=== PATIENT | male | born 1960 | race Caucasian/White ===

== ENCOUNTER → 2017-03-30 06:58 | Outpatient (CLI) | payer OTHER, SELFPAY ==
--- NOTE | 2017-03-30 13:39 | PFT_ITS ---
PULMONARY FUNCTION RESULTS SPIROMETRY: Mild Obstructive Ventilatory Component. No siginificant measurable clinical response to Beta Agonist. LUNG VOLUMES: Normal lung volumes. DIFFUSION: Normal gas transfer.
== END ==
PROVIDERS: Family Provider Internal Medicine; PCP Internal Medicine; Visit Provider Internal Medicine
DX: J44.9 Chronic obstructive pulmonary disease, unspecified (principal)
CPT/HCPCS: 94060; 94726; 94729

== ENCOUNTER → 2017-05-17 09:30 | Outpatient (CLI) | payer OTHER, SELFPAY ==
--- NOTE | 2017-05-17 09:33 | US_ITS ---
STUDY: ABDOMINAL ULTRASOUND - RIGHT UPPER QUADRANT REASON FOR VISIT: Male, 57 years old. Liver cirrhosis TECHNIQUE: Ultrasound evaluation of the right upper quadrant was performed with real-time and static tee-scale imaging. TECHNICAL QUALITY: Adequate. COMPARISON: None. FINDINGS: Liver: The liver measures 17.7 cm. There is a heterogeneous echogenicity of the liver. The bile ducts are within normal limits. There is hepatic color flow. The direction of portal flow is hepatopetal. There is no demonstrated mass lesion. Gallbladder: Normal distended gallbladder. The gallbladder wall measures 3 mm. There is a negative sonographic Scott's sign. There is no pericholecystic fluid. There are no gallstones. Common Bile Duct (C.B.D.): The common bile duct measures 4 mm. Pancreas: Normal size of the head, body of the pancreas. There is normal echogenicity of the pancreas. There is no demonstrated pancreatic mass or cyst. Right Kidney: Normal size of the right kidney. The right kidney measures 14.3 x 4.6 x 5.0 cm. Normal renal cortex. The right cortex measures 1.4 cm. There is no demonstrated renal mass or cyst. There is no right hydronephrosis. US/Abdomen Limited IMPRESSION: There is heterogeneous echogenicity of liver parenchyma may be due to liver cirrhosis. There is no abnormal mass. Electronically Signed: Asim Rollins MD at 14:01 EDT Tel , Service support ,
== END ==
PROVIDERS: Family Provider Internal Medicine; PCP Internal Medicine
DX: K74.69 Other cirrhosis of liver (principal)
CPT/HCPCS: 76705

== ENCOUNTER → 2017-12-13 10:43 | Outpatient (CLI) | payer OTHER, SELFPAY ==
--- NOTE | 2017-12-13 10:53 | US_ITS ---
STUDY: ABDOMINAL ULTRASOUND - RIGHT UPPER QUADRANT REASON FOR VISIT: Male, 57 years old. Elevated LFTs TECHNIQUE: Ultrasound evaluation of the right upper quadrant was performed with real-time and static tee-scale imaging. TECHNICAL QUALITY: Adequate. COMPARISON: None. FINDINGS: Liver: The liver measures 17.5 cm. There is increased echogenicity consistent with fatty infiltration. The bile ducts are within normal limits. There is hepatic color flow. The direction of portal flow is hepatopetal. There is no demonstrated mass lesion. Gallbladder: Normal distended gallbladder. The gallbladder wall measures 3 mm. There is a negative sonographic Scott's sign. There is no pericholecystic fluid. There are no gallstones. Common Bile Duct (C.B.D.): The common bile duct measures : mm. Pancreas: Normal size of the head, body and tail of the pancreas. There is normal echogenicity of the pancreas. There is no demonstrated pancreatic mass or cyst. Right Kidney: Normal size of the right kidney. The right kidney measures 13.6 x 4.9 x 4.6 cm. Normal renal cortex. The right cortex measures 1.3 cm. There is no demonstrated renal mass or cyst. There is no right hydronephrosis. US/Abdomen Limited IMPRESSION: Fatty liver, no discrete lesion Electronically Signed: Noe Gomez MD at 19:24 EDT , Service support ,
--- NOTE | 2017-12-13 12:45 | RAD_ITS ---
STUDY: SWALLOWING STUDY REASON FOR EXAM: Male, 57 years old. Cough. TECHNIQUE: The examination was performed with Speech Pathology in attendance. Under fluoroscopic observation, the patient ingested thin barium, thick barium, barium pudding, and barium coated cracker. FLUOROSCOPY TIME: 1:01 minutes/seconds. 880 fluoroscopic images were obtained. RADIOLOGIST INVOLVEMENT: Radiologist was present and providing direct supervision. COMPARISON: None. FINDINGS: The following was observed during swallowing of the various mixtures of barium: Thin Barium: There was no evidence of aspiration or laryngeal penetration. Barium Pudding: There was no evidence of aspiration or laryngeal penetration. Barium Coated Cracker: There was no evidence of aspiration or laryngeal penetration. RAD/Swallowing Function w/Video IMPRESSION: Normal tailored barium swallow study. No evidence of increased risk for aspiration. The swallow study findings were discussed with the patient by the speech pathologist at the conclusion of the examination. Please see speech pathology report for more information and recommendations. Electronically Signed: Johnathon Fulton MD at 14:01 EDT Tel [phone], Service support ,
--- NOTE | 2017-12-13 13:00 | SP.MBSS_ITS ---
PRIMARY / SECONDARY DIAGNOSIS: dysphagia (R13.10) REFERRING PHYSICIAN: Dr. Marybel Garcias MD CURRENT DIET: regular textures, thin liquids DENTITION: WFL MENTAL STATUS: WNL RESPIRATORY STATUS: O2 via room air PREVIOUS MODIFIED BARIUM SWALLOW STUDY: none REASON FOR REFERRAL: Patient is a 57 year old male referred for a modified barium swallow (MBS) study to objectively assess the Patients oropharyngeal swallow function under fluoroscopy secondary to reported difficulties with PO intake that the Patient attributes to rapid ingestion with bolus bolting (rapid ingestion without sufficient mastication) / aerophagia. The Patient reports symptoms occurring with ?fluffier? textures (i.e., potato chips) and likely associated with rapid ingestion and, at times in suboptimal positioning (i.e., lying in recliner). ADDITIONAL OBJECTIVE ASSESSMENT RESULTS: 04/01/2017 pulmonary functions test (PFT) revealed mild obstructive ventilatory component; no significant measurable clinical response to beta agonist. MEDICAL HISTORY: Chronic obstructive pulmonary disease, gastroesophageal reflux disease, obstructive sleep apnea, carotid stenosis, hypertension, hyperlipidemia, thrombocytopenia STUDY FINDINGS: Patient participated in a Modified Barium Swallow (MBS) study on 12/13/2017. Dr. Fulton was the radiologist present for this evaluation. This study was recorded in the lateral view and images were sent to PACs for storage. The following consistencies were presented to this patient for analysis of oropharyngeal swallow function: thin liquids, pudding, and a regular textured, Karine Doone cookie. Results of the MBS are as follows: PENETRATION / ASPIRATION SCALE (MILLER): 1 = does not enter airway 2 = enters airway/above vocal folds/ejected 3 = enters airway/above vocal folds/not ejected 4 = enters airway/contacts vocal folds/ejected 5 = enters airway/contacts vocal folds/not ejected 6 = enters airway/below vocal folds/ejected 7 = enters airway/below vocal folds/not ejected despite effort 8 = enters airway/below vocal folds/no effort PENETRATION / ASPIRATION SCALE (SCORE): Thin liquids via cup (sequential swallows): 1 Pudding via spoon: 1 Regular textured cookie: 1 Thin liquids via straw (single sip): 1 Thin liquids via straw (single sip): 1 Thin liquids via straw (single sip): 1 Thin liquids via straw (single sip): 1 IMPRESSION: DIAGNOSIS: swallow function within normal limits ORAL PHASE CHARACTERIZED BY: LABIAL SEAL: no labial escape TONGUE CONTROL DURING BOLUS MANIPULATION: cohesive bolus between tongue to palatal seal BOLUS PREPARATION / MASTICATION: timely and efficient chewing and mashing BOLUS TRANSPORT / LINGUAL MOTION: brisk tongue motion ORAL RESIDUE: intermittent trace residue lining oral structures PHARYNGEAL PHASE CHARACTERIZED BY: INITIATION OF PHARYNGEAL SWALLOW: bolus head in valleculae at first hyoid excursion SOFT PALATE ELEVATION: no bolus between soft palate and pharyngeal wall LARYNGEAL ELEVATION: complete superior movement of thyroid cartilage with complete approximation of arytenoids cartilage to epiglottic petiole ANTERIOR HYOID EXCURSION: complete anterior movement EPIGLOTTIC MOVEMENT: complete epiglottic inversion LARYNGEAL VESTIBULE CLOSURE AT HEIGHT OF SWALLOW: complete laryngeal vestibule closure with no air/contrast in laryngeal vestibule PHARYNGEAL STRIPPING WAVE: pharyngeal stripping wave present / complete PHARYNGOESOPHAGEAL SEGMENT OPENING: complete distension and complete duration with no obstruction of flow TONGUE BASE RETRACTION: no contrast between tongue base and posterior pharyngeal wall PHARYNGEAL RESIDUE: intermittent trace residue within or on pharyngeal structures ESOPHAGEAL PHASE CHARACTERIZED BY: ESOPHAGEAL BOLUS CLEARANCE IN THE UPRIGHT POSITION: could not view DIET TEXTURE RECOMMENDATIONS: Will recommend a regular textured, thin liquid diet. COMPENSATORY STRATEGIES RECOMMENDED: Reduced bolus volume, reduced rate of intake, seated upright at 90 degrees during PO intake, remain upright for 30-60 minutes post meal (GERD precaution) INTERPRETATION OF RESULTS: The Patient presents with mastication and deglutition abilities found to be grossly within normal limits. No aspiration appreciated throughout consistencies trialed. RECOMMENDATIONS: Would associate the Patients symptoms with intake behaviors described above, with no atypical findings suggestive of a defined dysphagia. Patient able to comprehend and express recommended intake precautions detailed above with sufficient detail to suggest high likelihood of compliance. Provided brief overview of signs and symptoms of aspiration, with recommendations for the Patient to further discuss symptoms with PCP. No further skilled speech- language services warranted at this time targeting dysphagia. ADDITIONAL COMMENTS/RECOMMENDATIONS: Results and recommendations were discussed with the Patient immediately following MBS completion, with the Patient verbalizing understanding and agreement with all recommendations and education provided. IMAGE COUNT: 880 G-CODES: SWALLOWING G8996 Current Status: SWALLOWING G8997 Goal Status: SWALLOWING G8998 Discharge Status: JULIO Azevedo M.A., CCC-UNISAW OPERATOR [facility] Speech-Language Pathology Department [email or web address]
--- NOTE | 2017-12-13 14:38 | CDU_ITS ---
[id number] ^CDU^Carotid Duplex Ultrasound [id number] TAG_START [facility] Carotid Duplex Ultrasound [address] [place], [place] [address] Ordering Physician: Marybel Garcias TAG_ENDED TAG_START Name: GILSON BHATIA Study Date: 12/13/2017 02:39 PM Patient Location: [place] : 1960 Gender: Male Age: 57 yrs Ethnicity: C TAG_ENDED Reason For Study: Bilateral carotid stenosis Rt. Velocities/BP Lt. Velocities/BP Prox CCA 126/17.3 cm/sec. Prox CCA 157/18.7 cm/sec. Mid CCA 127/21.2 cm/sec. Mid CCA 129/22.6 cm/sec. Dist CCA 110/23.6 cm/sec. Dist CCA 121/26.5 cm/sec. Prox ICA 75.6/18.8 cm/sec. Prox ICA 96.6/20.4 cm/sec. Mid ICA 107/29.1 cm/sec. Mid ICA 82.3/16.6 cm/sec. Dist ICA 122/34.6 cm/sec. Dist ICA 79.7/22.3 cm/sec. Rt. ICA/CCA = 0.97. Lt. ICA/CCA = 0.75. Prox ECA 145/24.4 cm/sec. Prox ECA 124/12.6 cm/sec. Rt. Vert. 46/12.6 cm/sec. Lt. Vert. 75.6/19.3 cm/sec. Right Extracranial There is intimal thickening but no significant atherosclerotic plaque noted in the right common carotid artery. There is heterogeneous, smooth atherosclerotic plaque noted in the right internal carotid artery. There is no significant atherosclerotic plaque noted in the right external carotid artery. Antegrade flow is noted in the right vertebral artery. Left Extracranial There is intimal thickening but no significant atherosclerotic plaque noted in the left common carotid artery. There is heterogeneous, irregular atherosclerotic plaque noted in the left internal carotid artery. There is no significant atherosclerotic plaque noted in the left external carotid artery. Antegrade flow is noted in the left vertebral artery. Procedure Carotid Duplex [id number]. Exam performed in department. Interpretation Summary Mild (<50%) stenosis right extracranial internal carotid. Mild (<50%) stenosis left extracranial internal carotid. Flow within the vertebral arteries is antegrade bilaterally. TAG_START TAG_ENDED Ordering Physician: Marybel Garcias Referring Physician: Marybel Garcias Performed By: Alvina Hagan RVT, RDCS and Student
== END ==
PROVIDERS: Family Provider Internal Medicine; PCP Internal Medicine; Referring Provider Internal Medicine; Visit Provider Internal Medicine
DX: I65.23 Occlusion and stenosis of bilateral carotid arteries (principal); R05 Cough; K74.60 Unspecified cirrhosis of liver; K76.9 Liver disease, unspecified
CPT/HCPCS: 74230; 76705; 92611; 93880

== ENCOUNTER → 2018-03-22 07:56 | Outpatient (CLI) | payer OTHER, SELFPAY ==
--- NOTE | 2018-03-22 08:10 | VDLE_ITS ---
Reason For Study: Bilateral leg pain RIGHT LEFT GSV is normal. GSV is normal. CFV is compressible, spontaneous, phasic, CFV is compressible, spontaneous, phasic, competent and demonstrates normal competent, and demonstrates normal augmentation. augmentation. FV is compressible, spontaneous, phasic, FV is compressible, spontaneous, phasic, competent and demonstrates normal competent and demonstrates normal augmentation. augmentation. POP V is compressible, spontaneous, phasic, POP V is compressible, spontaneous, phasic, competent and demonstrates normal competent and demonstrates normal augmentation. augmentation. T/P Trunk is compressible. T/P Trunk is compressible. PTV is compressible. PTV is compressible. RT PerV is compressible. LT PerV is compressible. Procedure Exam performed in department. A preliminary report was called and/or faxed to [facility]. Interpretation Summary Deep veins of the lower extremities are bilaterally patent and compressible segmentally. There is no evidence of deep vein thrombosis on either side. Valvular competence appears intact within the proximal deep venous systems bilaterally. The greater saphenous veins appear bilaterally patent and compressible segmentally. Ordering Physician: Marybel Garcias Referring Physician: Marybel Garcias Performed By: Giles Schaefer RVT and Student
[2018-03-22 08:26] LABS: Absolute Lymphocyte Count 0.56 X10^3/ul (0.83-4.51); Absolute Neutrophil Count 2.4 X10^3/uL (2.0-7.7); Basophil# 0.01 X10^3/uL; Basophil% 0.3 % (0-1); Eosinophil# 0.19 X10^3/uL; Eosinophils% 5.1 % (0-5); Hematocrit 40.5 % (40-54); Hemoglobin 13.1 g/dl (13.0-16.5); Lymphocyte # 0.56 X10^3/ul (4.0); Mean Corp Hgb Conc 32.3 g/gl (32-36); Mean Corpuscular Hgb 29.4 pg (27.0-32.0); Mean Platelet Vol. 9.3 fl (6.2-12.0); Neutrophil # 2.37 X10^3/uL (2.7-7.7); Neutrophil % 63.3 % (47-70); Platelet Count 95 K/mm3 (150-450); RBC Distribution Width CV 15.4 % (11.6-14.6); RBC Distribution Width SD 50.3 fl (35.1-43.9); Red Blood Count 4.45 M/mm3 (4.6-6.2); White Blood Count 3.7 K/mm3 (4.4-11.0)
[2018-03-22 08:32] LABS: Differential Indicated SCAN CRITERIA MET; POSITIVE COUNT NO; POSITIVE DIFFERENTIAL YES; POSITIVE MORPHOLOGY NO
[2018-03-22 08:45] LABS: Differential Comment SCANNED
== END ==
PROVIDERS: Family Provider Internal Medicine; PCP Internal Medicine; Referring Provider Internal Medicine; Visit Provider Internal Medicine
DX: M79.604 Pain in right leg (principal); M79.605 Pain in left leg; R50.9 Fever, unspecified
CPT/HCPCS: 36415; 85025; 93970

== ENCOUNTER → 2018-04-13 12:28 | Outpatient (CLI) | payer SELFPAY ==
--- NOTE | 2018-04-13 12:41 | CT_ITS ---
STUDY: CT CHEST WITHOUT CONTRAST REASON FOR EXAM: Male, 58 years old. Hyperlipidemia. Former smoker. Diabetes. Calcium scoring examination. Radiology over read. RADIATION DOSAGE (If Supplied By Facility): CTDIvol = ( 17.37 ) mGy, DLP = ( 347.40 ) mGycm TECHNIQUE: Transaxial imaging was performed without the administration of intravenous contrast material. Individualized dose optimization techniques were used for this CT. COMPARISON: Comparison is made with prior examination dated January 08, 2012. FINDINGS: The lungs are normal. There is no demonstrated pleural abnormality. There are calcifications of the coronary arteries. There are multiple small lymph nodes within the mediastinum, which are normal in size and morphology most compatible with reactive lymph hyperplasia. Normal hilar regions. Normal unenhanced pulmonary arteries. There is atherosclerotic calcification of the aortic arch . There are multi-level degenerative changes of the thoracic spine. Healed left rib fractures. There is no demonstrated abnormality of the visualized upper abdomen. CT/Limited Chest CT w/CCTA IMPRESSION: Coronary artery calcification. No acute abnormality is seen. Electronically Signed: Johnathon Fulton, at 13:13 EST , Service support ,
[2018-04-13 12:50] VITALS: PULSE 67; RESP 16; O2SAT 100; BMI 40.6
--- NOTE | 2018-04-13 18:48 | CA.SCORE ---
Calcium Scoring Date of Study:: 04/13/18 Coronary Calcium Scoring: Coronary calcium score: 1502 Conclusion: Coronary calcium score: 1502 Results: The patient underwent high-resolution CT imaging of the chest on 04/13/2018. Attention was paid to the coronary arteries for examination and analysis of the presence and extent of coronary artery calcification. Coronary calcium quantification software was utilized. The patient was reported as tolerating the procedure well with no obvious complications. The coronary calcium score was reported at 1502. The left main coronary artery reported urinary calcium score of 0; the left anterior descending coronary artery reported a calcium score of 350; the left circumflex coronary artery reported a calcium score of 251; the right coronary artery reported a calcium score of 901. A coronary calcium score, based upon pre-published reference tables, greater than 400 is indicative of extensive plaque burden. It is indicative of the high likelihood of at least one significant coronary artery stenosis being greater than 50% in diameter. Impression: Coronary calcium score: 1502 This note was generated using a voice recognition system and there may be incorrect words, spelling or punctuation that were not noted when reviewing the office note prior to saving.
== END ==
PROVIDERS: Family Provider Internal Medicine; PCP Internal Medicine; Referring Provider Internal Medicine; Visit Provider Internal Medicine
DX: E78.5 Hyperlipidemia, unspecified (principal)
CPT/HCPCS: 75571; 76380

== ENCOUNTER → 2018-06-10 07:36 | Outpatient (CLI) | payer OTHER, SELFPAY ==
[2018-06-01 12:24] VITALS: BMI 40.6
--- NOTE | 2018-06-10 07:39 | RAD_ITS ---
STUDY: X-RAY CHEST REASON FOR EXAM: Male, 58 years old. Substernal chest pain TECHNIQUE: PA and lateral views of the chest. COMPARISON: 02/28/2011 FINDINGS: The lungs are clear and expanded. There is no demonstrated pleural abnormality. Normal size heart. Normal mediastinum and denisse. Normal visualized pulmonary arteries. Normal visualized aortic arch and descending thoracic aorta. Normal visualized thoracic spine. Old healed left rib fractures There is no demonstrated abnormality of the visualized soft tissue structures of the upper abdomen. RAD/Chest PA and Lateral IMPRESSION: No acute pulmonary process Electronically Signed: Noe Gomez MD at 9:00 EDT , Service support ,
--- NOTE | 2018-06-10 07:55 | US_ITS ---
STUDY: ABDOMINAL ULTRASOUND - RIGHT UPPER QUADRANT REASON FOR VISIT: Male, 58 years old. Elevated LFTs TECHNIQUE: Ultrasound evaluation of the right upper quadrant was performed with real-time and static tee-scale imaging. TECHNICAL QUALITY: Limited. Examination limited by bowel gas. COMPARISON: 12/13/2017 FINDINGS: Liver: The liver measures 18.4 cm. There is increased echogenicity consistent with fatty infiltration. The bile ducts are within normal limits. There is hepatic color flow. The direction of portal flow is hepatopetal. There is no demonstrated mass lesion. Gallbladder: Normal distended gallbladder. The gallbladder wall measures 2.5 mm. There is a negative sonographic Scott's sign. There is no pericholecystic fluid. There are no gallstones. Common Bile Duct (C.B.D.): The common bile duct measures 3.5 mm. Pancreas: Visualized pancreas is sonographically normal Right Kidney: Normal size of the right kidney. The right kidney measures 13.1 x 6.0 x 6.1 cm. Normal renal cortex. The right cortex measures 2.2 cm. There is no demonstrated renal mass or cyst. There is no right hydronephrosis. US/Abdomen Limited IMPRESSION: Hepatomegaly with diffuse fatty infiltration, no discrete lesion Electronically Signed: Noe Gomez MD at 10:37 EDT , Service support ,
[2018-06-10 09:26] LABS: Absolute Lymphocyte Count 0.69 X10^3/ul (0.83-4.51); Absolute Neutrophil Count 2.1 X10^3/uL (2.0-7.7); Basophil# 0.01 X10^3/uL; Basophil% 0.3 % (0-1); Eosinophil# 0.11 X10^3/uL; Eosinophils% 3.2 % (0-5); Hematocrit 43.3 % (40-54); Hemoglobin 14.4 g/dl (13.0-16.5); Lymphocyte # 0.69 X10^3/ul (4.0); Lymphocyte % 20.2 % (19-41); Mean Corp Hgb Conc 33.3 g/gl (32-36); Mean Corpuscular Hgb 29.1 pg (27.0-32.0); Mean Corpuscular Volume 87.5 fL (80-94); Mean Platelet Vol. 9.5 fl (6.2-12.0); Monocyte# 0.52 X10^3/uL; Monocyte% 15.2 % (0-10); Neutrophil # 2.07 X10^3/uL (2.7-7.7); Neutrophil % 60.8 % (47-70); Platelet Count 111 K/mm3 (150-450); RBC Distribution Width CV 14.9 % (11.6-14.6); RBC Distribution Width SD 47.7 fl (35.1-43.9); Red Blood Count 4.95 M/mm3 (4.6-6.2); White Blood Count 3.4 K/mm3 (4.4-11.0)
[2018-06-10 09:29] LABS: POSITIVE COUNT NO; POSITIVE DIFFERENTIAL NO; POSITIVE MORPHOLOGY NO
[2018-06-10 09:59] LABS: Anion Gap 8 (5-15); BUN 15 mg/dL (7-18); BUN/Creat Ratio 14.6 RATIO (10-20); Calcium,Total 8.7 mg/dL (8.5-10.1); Chloride 104 mmol/L (98-107); Creatinine, Serum 1.03 mg/dL (0.70-1.30); EST Glomerular Filtration Rate 78 mL/min (>60); Est Glom Filt Rate - Afr Amer 95 mL/min (>60); Glucose 110 mg/dL (74-106); Potassium 3.9 mmol/L (3.5-5.1); Sodium Level 139 mmol/L (136-145)
== END ==
PROVIDERS: Internal Medicine Cardiovascular Disease; Family Provider Internal Medicine; PCP Internal Medicine; Referring Provider Internal Medicine; Visit Provider Internal Medicine
DX: K74.60 Unspecified cirrhosis of liver (principal); I10 Essential (primary) hypertension; E78.5 Hyperlipidemia, unspecified; R93.1 Abnormal findings on diagnostic imaging of heart and coronary circulation
CPT/HCPCS: 36415; 71046; 76705; 80048; 85025

== ENCOUNTER 2018-06-30 06:48 | Day surgery (SDC) | payer OTHER, SELFPAY ==
[2018-06-01 12:24] VITALS: BMI 40.6
--- NOTE | 2018-06-30 08:34 | CL.D_ITS ---
Patient Name: GILSON BHATIA Study Date: 06/30/2018 Performing: Keven Jenkins MD Ht: 70.07 inches 178 cm : 1960 Wt: 275 lbs 124.74 kg Age: 58 Gender: male BSA: 2.39 PROCEDURE(S) PERFORMED [id number]/LV CLINICAL PROFILE AND INDICATIONS Indications: Suspected CAD Heart Failure: None Stress/Imaging Coronary Calcium Score: Yes Calcium Score: 1500Calcium Score: 1500 CAD Presentations: Symptom unlikely to be ischemic. CONCLUSIONS Non obstructive coronary arteries Normal LV size, wall motion,and systolic function RECOMMENDATIONS Medical therapy DESCRIPTION OF PROCEDURE The patient arrived to the procedure lab. The risks and benefits of the procedure as well as a full d escription of our services here and current unavailability of surgical backup were fully explained to the patient and/or their significant other prior to the catheterization. The Timeout was completed, verifying the correct patient and procedure. The patient's procedural site was prepped and draped in the usual fashion. Local anesthetic was given subcutaneously to right radial region with Lidocaine 2% . Using a modified Seldinger technique, arterial access was obtained via the right radial artery, a 6 Fr sheath was inserted. Right Coronary Artery selective angiography was then performed in multiple v iews using a 5 Fr. 4.0 Flom catheter. Left Coronary Artery selective angiography was performed in mu ltiple views using a 5 Fr. 4.0 Flom catheter. Left Ventriculography was performed in YOUNG projection using a 5 Fr. Pigtail catheter. LV to AO pullback pressures were then recorded.The arterial sheath was pulled and a TR Band was applied for hemostasis. 14 Air CORONARY ANGIOGRAPHY DOMINANCE: Right Dominant LEFT HEART ASSESSMENT Left Ventricular Ejection Fraction: by LV Gram 65 % Normal LV wall motion Normal Left Ventricular systolic function LEFT MAIN: Mild calcification, No significant disease noted LEFT ANTERIOR DESCENDING ARTERY: Mild luminal irregularities CIRCUMFLEX ARTERY: Mild luminal irregularities RAMUS: Mild luminal irregularities RIGHT CORONARY ARTERY: Mild luminal irregularities Mild calcification COMPLICATIONS No Complications PROCEDURE MEDICATIONS Fentanyl 50 mcg IV Versed 1 mg IV Oxygen: 2 L/min via nasal cannula Heparin diluted in 23cc Heparinized saline. Patient given 10cc IA of this solution. 06/30/2018 08:12: 18 Verapamil 2.5mg, Ntg 100mcgs, 2000 units of Heparin diluted in 23cc Heparinized saline. Patient give n 10cc IA of this solution. 06/30/2018 08:12:18 IV Fluids: .9 NaCl increased to open ml/hr 06/30/2018 08:16:12 SUMMARY OF HEMODYNAMIC DATA Time AIR REST ECG 07:58:18 AO 92/45 (62) SA 08:14:54 LV 108/24, 33 08:22:17 LV 111/21, 28 08:22:25 LV 123/27, 32 08:23:46 LVp 117/21, 36 08:23:49 AOp 119/76 (95) 08:23:54 Signed By Keven Jenkins MD On 06/30/2018 08:34:02 Keven Jenkins MD
== END 2018-06-30 11:15 | disposition home or self-care (01) ==
LOC: CLSP 06:49
PROVIDERS: Family Provider Internal Medicine; PCP Internal Medicine; Referring Provider Internal Medicine Cardiovascular Disease; Visit Provider Internal Medicine Cardiovascular Disease
DX: R93.1 Abnormal findings on diagnostic imaging of heart and coronary circulation (principal); J44.9 Chronic obstructive pulmonary disease, unspecified; E11.9 Type 2 diabetes mellitus without complications; I10 Essential (primary) hypertension; E78.5 Hyperlipidemia, unspecified; K27.7 Chronic peptic ulcer, site unspecified, without hemorrhage or perforation; M19.90 Unspecified osteoarthritis, unspecified site; K21.9 Gastro-esophageal reflux disease without esophagitis; G47.33 Obstructive sleep apnea (adult) (pediatric); E66.9 Obesity, unspecified; Z79.82 Long term (current) use of aspirin; Z79.02 Long term (current) use of antithrombotics/antiplatelets; Z79.899 Other long term (current) drug therapy; Z87.891 Personal history of nicotine dependence
CPT/HCPCS: 93458; 99152; 99153; J7040; Q9967; C1769; C1894

== ENCOUNTER → 2018-07-13 09:26 | Outpatient (CLI) | payer OTHER, SELFPAY ==
[2018-06-01 12:24] VITALS: BMI 40.6
--- NOTE | 2018-07-13 09:29 | RAD_ITS ---
STUDY: X-RAY - RIGHT KNEE REASON FOR EXAM: Male, 58 years old. Pain. No known injury. TECHNIQUE: 4 view(s) of the knee. COMPARISON: None. FINDINGS: Normal visualized distal femur. Normal visualized proximal tibia and fibula. Normal proximal tibiofibular articulation. There is mild degenerative arthrosis of the medial femorotibial compartment. Normal lateral femorotibial compartment. Normal patellofemoral articulation. The soft tissue structures are unremarkable. RAD/Knee 4 or More Views IMPRESSION: Degenerative arthrosis. Electronically Signed: Johnathon Fulton, at 10:03 EDT , Service support ,
== END ==
PROVIDERS: Family Provider Internal Medicine; PCP Internal Medicine; Referring Provider Internal Medicine; Visit Provider Internal Medicine
DX: M25.561 Pain in right knee (principal)
CPT/HCPCS: 73564

== ENCOUNTER 2018-09-12 07:00 | Outpatient (RCR) | payer OTHER, SELFPAY ==
[2018-06-01 12:24] VITALS: BMI 40.6
--- NOTE | 2018-08-19 09:51 | HP.PTEVAL_ITS ---
Patient's Visit Information GILSON BHATIA is a 58 year old M referred to Physical Therapy by Margie Wynn DO with a diagnosis of B nee OA, pain. Date of Evaluation: 08/19/18 Physical Therapist: Phillip Colbert, DPT, OCS, CSCS - Visit Plan Frequency: 2x /Week Duration: 4-6 Weeks Plan: Every other week(pt to busy to come in more often) to progress HEP. Started with stretches today and will progress to NWB then WB LE strength to tolerance. Consider tempering kiln tender bracing if pain returns. - Subjective Findings: Needs L TKA and has pain mostly in L and favors R and both hurt. Tore meniscus on L 5 yrs ago turning in shop. Had stem cells B 3 weeks ago.Seen [facility] 5 yrs ago for surgery. Takes antiinflammatory long time but wasn't helping last fall. Had therapy last fall adn it did not help. Rose says he needs knee replacement. Pain on a daily basis is none right now. But feels like he has to be marina and overly careful. [place] adn climbing in and out of tractor cab are worse. Does not avoid activities but is overly careful. Sometimes avoids getting down on ground under equipment. 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 - Pain L knee medially Pain Intensity (Out of 10): 0 Pain Intensity Range: 0, 3 - Objective Walks with obvious varus L >R knee. But safe and I without antalgia today. Tranfers I. tightness obvoius in B HS, quads moderately and piriformis moderately. Knee AROM L 0-121 and R 0-126. Hip AROM WFL and symmetrical, ankle symmetrical. strength hips 4-, knees 4+ and ankles 5/5, no increased pain today. reflexes 2/3 in patella and achilles. - varus and valgus testing today, - ant drawer,- bounce home, - patellar grind. All B. Steps are reciprocal with one rail with jsut some stiffness in R knee. - Goals Goal 1:: I approp HEP for strefngth and stretch B hips and knees to minimzie future problems. Goal Time Frame: 4-6 Weeks Goal 2:: Pt maintain improvemnt in knee pain at 0-2/10 at worst and manageable. Goal Time Frame: 4-6 Weeks - Rehabilitation Potential Physical Therapy Diagnosis: Degeneration B Knees. Rehabilitation Potential: Fair - Anticipated Interventions Patient/Client Instruction: Educate patient on: Condition, Plan of Care For the Purpose of:: To decrease pain, To increase ROM, To improve muscle performance and motor function, To increase tolerance to activity/condition/position Therapeutic Exercise to Include: Strength training, Flexibilty training, Passive ROM, Active ROM For the Purpose of:: To decrease pain, To improve nutrient delivery to tissue, To improve muscle performance and motor function, To improve ability of physical actions for home/community/work/leisure Thank you for the opportunity to evaluate your patient. For Medicare and Medicare HMO plans, please review the plan of care and approve it. It will need to be FAXED BACK to us at [phone] for Medicare purposes. For Medicare only, by signing this I certify the plan of care. Please let me know if there are questions or concerns regarding this plan of care. Physician Signature: Date:
--- NOTE | 2018-11-03 12:06 | HP.PT.NRP ---
HP - Discharge Summary (1) - Patient Information GILSON BHATIA was seen in my office for initial evaluation on 08/19/18. The following Plan of Care was established for this patient: Initial Frequency: 2x /Week Initial Duration: 4-6 Weeks - Anticipated Interventions Patient/Client Instruction: Educate patient on: Condition, Plan of Care For the Purpose of:: To decrease pain, To increase ROM, To improve muscle performance and motor function, To increase tolerance to activity/condition/position Therapeutic Exercise to Include: Strength training, Flexibilty training, Passive ROM, Active ROM For the Purpose of:: To decrease pain, To improve nutrient delivery to tissue, To improve muscle performance and motor function, To improve ability of physical actions for home/community/work/leisure This patient was last seen in our office 09/12/18. Pertinent comments regarding their Physical therapy will appear below: Pt seen 2 visits for HEP instruct to help managem his knee OA. He cancelled the last visit neglecting to reschedule. at this point, I will discontinue due to nonattendance. At this point I will be discontinuing this patient from physical therapy. I would be happy to see this patient again in the future if found appropriate by the physician. Thank you! Phillip Colbert, DPT, OCS, CSCS
== END 2018-09-12 19:00 | disposition home or self-care (01) ==
LOC: PT 07:00
PROVIDERS: Family Provider Internal Medicine; PCP Internal Medicine; Referring Provider Internal Medicine; Visit Provider Internal Medicine
DX: M25.562 Pain in left knee (principal); M25.561 Pain in right knee; M17.0 Bilateral primary osteoarthritis of knee
CPT/HCPCS: 97110; 97162

== ENCOUNTER → 2018-09-14 14:39 | Outpatient (CLI) | payer OTHER, SELFPAY ==
[2018-06-01 12:24] VITALS: BMI 40.6
[2018-09-14 15:09] LABS: Bacteria 0 SEEN /hpf (None Seen); Mucous, Urine 0 SEEN /hpf (<or=2+); Red Blood Cells-Urine 0 SEEN /hpf (0-5); Squamous Epithelial Cells - UA 0 SEEN /hpf (0-5); White Blood Cells 0 SEEN /hpf (0-5)
[2018-09-14 15:20] LABS: Absolute Neutrophil Count 2.4 X10^3/uL (2.0-7.7); Basophil# 0.02 X10^3/uL; Basophil% 0.6 % (0-1); Eosinophil# 0.11 X10^3/uL; Hematocrit 41.6 % (40-54); Hemoglobin 14.2 g/dL (13.0-16.5); Lymphocyte % 16.6 % (19-41); Mean Corp Hgb Conc 34.1 g/dL (32-36); Mean Corpuscular Volume 90.8 fL (80-94); Mean Platelet Vol. 9.7 fl (6.2-12.0); Monocyte# 0.51 X10^3/uL; Monocyte% 14.1 % (0-10); NRBC Flagged by Analyzer 0 % (0-5); Neutrophil # 2.37 X10^3/uL (2.7-7.7); Neutrophil % 65.4 % (47-70); POSITIVE DIFFERENTIAL YES; Platelet Count 95 K/mm3 (150-450); RBC Distribution Width CV 14.3 % (11.6-14.6); RBC Distribution Width SD 48.2 fl (35.1-43.9); Red Blood Count 4.58 M/mm3 (4.6-6.2); White Blood Count 3.6 K/mm3 (4.4-11.0)
[2018-09-14 15:43] LABS: CPK Total, Creatine Kinase 125 U/L (39-308); CRP 4.84 mg/L (0.0-3.0); D-Dimer Quantitative (DVT/PE) 0.44 FEU/ug/m (0.27-0.49); LDH 153 U/L (87-241); Thyroid Stim Hormone (TSH) 1.48 uIU/mL (0.358-3.74)
[2018-09-14 15:46] LABS: Differential Indicated SCAN CRITERIA MET
[2018-09-14 15:52] LABS: Color, Urine Yellow (Yellow); Glucose, Dipstick Normal (Normal); Ketone-Dipstick Negative (Negative); Leukocyte Esterase-Dipstick Negative /ul (Negative); Nitrite-Dipstick Negative (Negative); Occult Blood-Urine Negative /ul (Negative); Protein-Dipstick Negative (Negative); Urine Bilirubin Dipstick Negative (Negative); Urine Clarity Clear (Clear); Urine Urobilinogen Normal (Normal)
[2018-09-14 16:08] LABS: Differential Comment SCANNED; Erythrocyte Sedimentation Rate 17 mm/hr (0-20)
[2018-09-16 13:44] LABS: Pathologist Review Reviewed
== END ==
PROVIDERS: Family Provider Internal Medicine; PCP Internal Medicine; Referring Provider Internal Medicine; Visit Provider Internal Medicine
DX: R07.9 Chest pain, unspecified (principal); R25.2 Cramp and spasm; R61 Generalized hyperhidrosis
CPT/HCPCS: 81001; 82550; 83615; 84443; 84484; 85025; 85379; 85652; 86140; 87086; 87088

== ENCOUNTER → 2018-09-15 09:15 | Outpatient (CLI) | payer OTHER, SELFPAY ==
[2018-06-01 12:24] VITALS: BMI 40.6
--- NOTE | 2018-09-15 09:18 | CT_ITS ---
STUDY: CT CHEST WITH CONTRAST REASON FOR EXAM: Male, 58 years old. 2 day history of chest pain. RADIATION DOSAGE (If Supplied By Facility): CTDIvol = ( 16.69 ) mGy, DLP = ( 749.27 ) mGycm TECHNIQUE: Transaxial imaging was performed following intravenous administration of 100 IV Isovue 300. Multiplanar coronal and sagittal images were reformatted. Individualized dose optimization techniques were used for this CT. COMPARISON: Comparison is made with prior study dated April 13, 2018. FINDINGS: Small bilateral benign-appearing axillary nodes. The lungs are normal. There is no demonstrated pleural abnormality. There are calcifications of the coronary arteries. Normal mediastinum. Normal hilar regions. Normal enhanced pulmonary arteries. There is focal atherosclerotic calcification of the aortic arch. There are multi-level degenerative changes of the thoracic spine. Healed left rib fractures. Small hiatal hernia. CT/Chest WITH Contrast IMPRESSION: No acute abnormality is seen. Electronically Signed: Johnathon Fulton, at 9:54 EDT , Service support ,
== END ==
PROVIDERS: Family Provider Internal Medicine; PCP Internal Medicine; Referring Provider Internal Medicine; Visit Provider Internal Medicine
DX: R07.9 Chest pain, unspecified (principal)
CPT/HCPCS: 71260; Q9967

== ENCOUNTER → 2018-09-21 13:21 | Outpatient (CLI) | payer OTHER, SELFPAY ==
[2018-06-01 12:24] VITALS: BMI 40.6
--- NOTE | 2018-09-21 13:24 | RAD_ITS ---
STUDY: X-RAY - THORACIC SPINE REASON FOR EXAM: Male, 58 years old. Anterior chest pain TECHNIQUE: 3 view(s) of the thoracic spine were obtained. COMPARISON: None. FINDINGS: Normal kyphosis of the thoracic spine. There is no substantial scoliosis. There is multilevel endplate spondylosis of the thoracic vertebrae. There is no acute fracture. The soft tissue structures are unremarkable. RAD/Thoracic Spine 3 Views IMPRESSION: Thoracic spondylosis. No fracture seen. Electronically Signed: Jose C Casas MD at 17:08 EDT , Service support ,
== END ==
PROVIDERS: Family Provider Internal Medicine; PCP Internal Medicine; Referring Provider Internal Medicine; Visit Provider Internal Medicine
DX: R07.89 Other chest pain (principal)
CPT/HCPCS: 72072

== ENCOUNTER → 2018-11-12 08:29 | Outpatient (CLI) | payer OTHER, SELFPAY ==
[2018-06-01 12:24] VITALS: BMI 40.6
--- NOTE | 2018-11-12 08:38 | RAD_ITS ---
STUDY: X-RAY - RIGHT KNEE REASON FOR EXAM: Male, 58 years old. Chronic pain TECHNIQUE: 4 view(s) of the knee. COMPARISON: None. FINDINGS: There is no evidence of fracture or dislocation. There are mild tricompartmental degenerative changes. There are no radiodense foreign bodies. RAD/Knee 4 or More Views IMPRESSION: No fracture or dislocation in the right knee. Mild degenerative change. Electronically Signed: Binh Holt, at 9:05 EDT Tel , Service support ,
== END ==
PROVIDERS: Family Provider Internal Medicine; PCP Internal Medicine; Referring Provider Internal Medicine; Visit Provider Internal Medicine
DX: M25.561 Pain in right knee (principal)
CPT/HCPCS: 73564

== ENCOUNTER → 2018-12-27 07:57 | Outpatient (CLI) | payer OTHER, SELFPAY ==
[2018-06-01 12:24] VITALS: BMI 40.6
--- NOTE | 2018-12-27 07:59 | CDU_ITS ---
Reason For Study: Bilateral carotid artery stenosis Rt. Velocities/BP Lt. Velocities/BP Prox CCA 104.7/13.4 cm/sec. Prox CCA 128/18.2 cm/sec. Mid CCA 100.8/13.4 cm/sec. Mid CCA 119.2/16 cm/sec. Dist CCA 98.2/18.6 cm/sec. Dist CCA 108.2/20.4 cm/sec. Prox ICA 99.2/18.8 cm/sec. Prox ICA 95.4/13.3 cm/sec. Mid ICA 80.2/23.7 cm/sec. Mid ICA 86.3/18.8 cm/sec. Dist ICA 119.5/28.6 cm/sec. Dist ICA 99.2/25.6 cm/sec. Rt. ICA/CCA = 1.19. Lt. ICA/CCA = 0.83. Prox ECA 150.3/18.8 cm/sec. Prox ECA 149.9/16 cm/sec. Rt. Vert. 49.4/11.6 cm/sec. Lt. Vert. 77.7/15.1 cm/sec. Right Extracranial There is homogeneous, smooth atherosclerotic plaque noted in the right common carotid artery. There is homogeneous, smooth atherosclerotic plaque noted in the right internal carotid artery. There is no significant atherosclerotic plaque noted in the right external carotid artery. Antegrade flow is noted in the right vertebral artery. Left Extracranial There is homogeneous, smooth atherosclerotic plaque noted in the left common carotid artery. There is heterogeneous, irregular atherosclerotic plaque noted in the left internal carotid artery. There is no significant atherosclerotic plaque noted in the left external carotid artery. Antegrade flow is noted in the left vertebral artery. Procedure Carotid Duplex 10791. Exam performed in department. Interpretation Summary Mild (<50%) stenosis right extracranial internal carotid. Mild (<50%) stenosis left extracranial internal carotid. Flow within the vertebral arteries is antegrade bilaterally. Ordering Physician: Marybel Garcias Referring Physician: Marybel Garcias Performed By: Krupa Kurtz RVT
== END ==
PROVIDERS: Family Provider Internal Medicine; PCP Internal Medicine; Referring Provider Internal Medicine; Visit Provider Internal Medicine
DX: I65.23 Occlusion and stenosis of bilateral carotid arteries (principal)
CPT/HCPCS: 93880

== ENCOUNTER → 2019-01-04 10:09 | Outpatient (CLI) | payer OTHER, SELFPAY ==
[2018-06-01 12:24] VITALS: BMI 40.6
--- NOTE | 2019-01-04 10:12 | US_ITS ---
STUDY: ABDOMINAL ULTRASOUND - RIGHT UPPER QUADRANT REASON FOR VISIT: Male, 58 years old. Hemachromatosis TECHNIQUE: Ultrasound evaluation of the right upper quadrant was performed with real-time and static tee-scale imaging. TECHNICAL QUALITY: Adequate. COMPARISON: None. FINDINGS: Liver: The liver measures 18 cm. There is increased echogenicity of the liver. The bile ducts are within normal limits. There is hepatic color flow. The direction of portal flow is hepatopetal. There is no demonstrated mass lesion. Gallbladder: The gallbladder wall measures 3 mm. There is a negative sonographic Scott's sign. There is no pericholecystic fluid. There are no gallstones. The gallbladder contains sludge. Common Bile Duct (C.B.D.): The common bile duct measures 3 mm. Pancreas: Normal size of the head, body and tail of the pancreas. There is normal echogenicity of the pancreas. There is no demonstrated pancreatic mass or cyst. Right Kidney: Normal size of the right kidney. The right kidney measures 14 cm. Normal renal cortex. There is no demonstrated renal mass or cyst. There is no right hydronephrosis. US/Liver IMPRESSION: Hepatomegaly and fatty liver. No hepatic lesions identified. Gallbladder sludge. Electronically Signed: Raffi Mcdaniel, at 21:43 EST Tel , Service support ,
== END ==
PROVIDERS: Family Provider Internal Medicine; PCP Internal Medicine; Referring Provider Internal Medicine; Visit Provider Internal Medicine
DX: E83.119 Hemochromatosis, unspecified (principal)
CPT/HCPCS: 76705

== ENCOUNTER → 2019-03-07 16:29 | Outpatient (CLI) | payer OTHER, SELFPAY ==
[2018-06-01 12:24] VITALS: BMI 40.6
[2019-03-07 17:51] LABS: Absolute Lymphocyte Count 0.74 X10^3/uL (0.83-4.51); Absolute Neutrophil Count 3.2 X10^3/uL (2.0-7.7); Basophil# 0.01 X10^3/uL; Basophil% 0.2 % (0-1); Eosinophil# 0.21 X10^3/uL; Eosinophils% 4.4 % (0-5); Hematocrit 40.6 % (40-54); Hemoglobin 13.3 g/dL (13.0-16.5); Lymphocyte # 0.74 X10^3/ul (4.0); Lymphocyte % 15.5 % (19-41); Mean Corp Hgb Conc 32.8 g/dL (32-36); Mean Corpuscular Hgb 29.4 pg (27.0-32.0); Mean Corpuscular Volume 89.6 fL (80-94); Mean Platelet Vol. 9.2 fl (6.2-12.0); Monocyte# 0.58 X10^3/uL; Monocyte% 12.1 % (0-10); NRBC Flagged by Analyzer 0 % (0-5); Neutrophil # 3.23 X10^3/uL (2.7-7.7); Neutrophil % 67.6 % (47-70); Platelet Count 117 K/mm3 (150-450); RBC Distribution Width CV 14.4 % (11.6-14.6); RBC Distribution Width SD 46.9 fl (35.1-43.9); Red Blood Count 4.53 M/mm3 (4.6-6.2); White Blood Count 4.8 K/mm3 (4.4-11.0)
[2019-03-07 18:04] LABS: Anion Gap 5 (5-15); BUN 20 mg/dL (7-18); BUN/Creat Ratio 20.7 RATIO (10-20); Calcium,Total 8.9 mg/dL (8.5-10.1); Chloride 107 mmol/L (98-107); Creatinine, Serum 0.97 mg/dL (0.70-1.30); EST Glomerular Filtration Rate 84 mL/min (>60); Est Glom Filt Rate - Afr Amer 102 mL/min (>60); Glucose 106 mg/dL (74-106); Potassium 3.7 mmol/L (3.5-5.1); Sodium Level 140 mmol/L (136-145)
[2019-03-07 18:15] LABS: Hemoglobin A1c 6.5 % (4.2-6.3)
== END ==
PROVIDERS: PCP Internal Medicine; Referring Provider Physician Assistant; Visit Provider Physician Assistant
DX: Z01.810 Encounter for preprocedural cardiovascular examination (principal); Z01.818 Encounter for other preprocedural examination; E11.9 Type 2 diabetes mellitus without complications
CPT/HCPCS: 36415; 80048; 83036; 85025

== ENCOUNTER → 2019-07-13 | Outpatient (CLI) | payer OTHER, SELFPAY ==
[2019-05-30 09:19] VITALS: BMI 40.0
== END | disposition home or self-care (01) ==
LOC: LABSPEC 13:29
PROVIDERS: PCP Internal Medicine; Referring Provider Internal Medicine Gastroenterology; Visit Provider Internal Medicine Gastroenterology
DX: Z11.59 Encounter for screening for other viral diseases (principal); I85.00 Esophageal varices without bleeding
CPT/HCPCS: 87635; G2023; U0004

== ENCOUNTER → 2019-09-27 10:53 | Outpatient (CLI) | payer OTHER, SELFPAY ==
[2019-05-30 09:19] VITALS: BMI 40.0
--- NOTE | 2019-09-27 10:58 | US_ITS ---
STUDY: ABDOMINAL ULTRASOUND - RIGHT UPPER QUADRANT REASON FOR VISIT: Male, 59 years old cirrhosis TECHNIQUE: Ultrasound evaluation of the right upper quadrant was performed with real-time and static tee-scale imaging. TECHNICAL QUALITY: Adequate. COMPARISON: Comparison is made with prior study dated 01/04/2019. FINDINGS: Liver: The liver is enlarged and measures 20.2 cm. There is increased echogenicity consistent with fatty infiltration. The bile ducts are within normal limits. There is hepatic color flow. The direction of portal flow is hepatopetal. There is no demonstrated mass lesion. Gallbladder: Normal distended gallbladder. The gallbladder wall measures 2. mm. There is a negative sonographic Scott''s sign. There is no pericholecystic fluid. There are no gallstones. Common Bile Duct (C.B.D.): The common bile duct measures 3.9 mm. Pancreas: Normal size of the head, body and tail of the pancreas. There is increased echogenicity of the pancreas. There is no demonstrated pancreatic mass or cyst. Right Kidney: Normal size of the right kidney. The right kidney measures 13.2 cm x 5.3 cm x 5.3 cm. Normal renal cortex. The right cortex measures 1.9 cm. There is no demonstrated renal mass or cyst. There is no right hydronephrosis. US/Abdomen Limited IMPRESSION: Mild hepatomegaly with diffuse fatty infiltration. Electronically Signed: Johnathon Fulton, at 12:16 EDT , Service support ,
== END ==
PROVIDERS: PCP Internal Medicine
DX: K74.60 Unspecified cirrhosis of liver (principal)
CPT/HCPCS: 76705

== ENCOUNTER → 2020-02-01 13:00 | Outpatient (CLI) | payer OTHER, SELFPAY ==
[2019-05-30 09:19] VITALS: BMI 40.0
--- NOTE | 2020-02-01 13:06 | CDU_ITS ---
Reason For Study: carotid stenosis Rt. Velocities/BP Lt. Velocities/BP Prox CCA 103.4/14.7 cm/sec. Prox CCA 152.1/22.5 cm/sec. Mid CCA 138.6/31.7 cm/sec. Mid CCA 124.7/20.6 cm/sec. Dist CCA 90.4/18.6 cm/sec. Dist CCA 99.2/17.0 cm/sec. Prox ICA 91.2/24.9 cm/sec. Prox ICA 128.4/20.6 cm/sec. Mid ICA 87.6/12.6 cm/sec. Mid ICA 95.5/24.3 cm/sec. Dist ICA 115.6/31.6 cm/sec. Dist ICA 113.8/33.4 cm/sec. Rt. ICA/CCA = .8. Lt. ICA/CCA = 1.0. Prox ECA 168.6/20.6 cm/sec. Prox ECA 163.1/20.6 cm/sec. Rt. Vert. 46.5/10.2 cm/sec. Lt. Vert. 68.1/9.7 cm/sec. Right Extracranial There is homogeneous, smooth atherosclerotic plaque noted in the right common carotid artery. There is heterogeneous, smooth atherosclerotic plaque noted in the right internal carotid artery. There is intimal thickening but no significant atherosclerotic plaque noted in the right external carotid artery. Antegrade flow is noted in the right vertebral artery. Left Extracranial There is homogeneous, smooth atherosclerotic plaque noted in the left common carotid artery. There is heterogeneous, irregular atherosclerotic plaque noted in the left internal carotid artery. There is heterogeneous, irregular atherosclerotic plaque noted in the left external carotid artery. Antegrade flow is noted in the left vertebral artery. Procedure Carotid Duplex 29232. This is a Carotid Duplex examination using B-mode, color flow and specral Doppler. The exam was diagnostic. Exam performed in department. Interpretation Summary Mild (<50%) stenosis right extracranial internal carotid. Mild (<50%) stenosis left extracranial internal carotid. Flow within the vertebral arteries is antegrade bilaterally. Ordering Physician: Marybel Garcias Performed By: Roger Schaefer RVT
--- NOTE | 2020-02-01 13:30 | RAD_ITS ---
STUDY: X-RAY - RIGHT FOOT CLINICAL: Male, 60 years old. BILATERAL FOOT/ANKLE PAIN, NKI TECHNIQUE: 3 view(s) of the foot. COMPARISON: None. FINDINGS: Dorsal enthesophyte and plantar spur of the calcaneus. Otherwise normal calcaneus, talus and tarsals. Normal visualized subtalar, talonavicular, calcaneocuboid and tarsal articulations. Degenerative arthrosis of the fifth tarsometatarsal joint with a degenerative cyst in the base of the fifth metatarsal. Normal metatarsi. There is degenerative arthrosis of the metatarsophalangeal joint of the hallux . There is a bipartite fibula sesamoid. Normal interphalangeal joint of the great toe. Normal phalanges of the great toe. Normal second through fifth metatarsophalangeal joints. Normal interphalangeal joints and phalanges of the lesser toes. The soft tissue structures are unremarkable. RAD/Foot min 3 Views IMPRESSION: Negative for fracture, dislocation, osteolytic or blastic bone lesions. Plantar spur and dorsal enthesophyte of the calcaneus. Degenerative arthrosis of the fifth tarsometatarsal joint. Degenerative cyst in the base of the fifth metatarsal. Mild degenerative changes of the first metatarsophalangeal joint. Electronically Signed: Holli Sylvester MD at 23:16 EST , Service support ,
--- NOTE | 2020-02-01 13:30 | RAD_ITS ---
STUDY: X-RAY - LEFT FOOT CLINICAL: Male, 60 years old. BILATERAL FOOT/ANKLE PAIN, NKI TECHNIQUE: 3 view(s) of the foot. COMPARISON: None. FINDINGS: Plantar spur of the calcaneus with minimal dorsal enthesophyte. Otherwise normal calcaneus, talus and tarsals. Normal visualized subtalar, talonavicular, calcaneocuboid, tarsal and tarsometatarsal articulations. Normal metatarsi. Normal metatarsophalangeal joint of the great toe. There is a bipartite fibula sesamoid. Normal interphalangeal joint of the great toe. Radiolucent groove in the base of the distal phalanx of the great toe, medial side. Normal second through fifth metatarsophalangeal joints. Normal interphalangeal joints and phalanges of the lesser toes. The soft tissue structures are unremarkable. RAD/Foot min 3 Views IMPRESSION: Plantar spur and minimal dorsal enthesophyte of the calcaneus. Radiolucent groove in the base of the distal phalanx of the great toe on the medial side probably a prior fracture deformity. No other acute bone or joint findings. Electronically Signed: Holli Sylvester MD at 23:30 EST , Service support ,
--- NOTE | 2020-02-01 13:30 | RAD_ITS ---
STUDY: X-RAY - LUMBAR SPINE REASON FOR EXAM: Male, 60 years old. HAVING CHRONIC LEG CRAMPS, NKI TECHNIQUE: 5 view(s) of the lumbar spine were obtained. COMPARISON: None FINDINGS: Normal lumbar lordosis. There is no substantial scoliosis. There is a normal alignment of the vertebrae. Normal vertebral body height without fracture, osteolytic or blastic bone lesion. Mild degenerative disc narrowing at each lumbar level with mild to moderate spondylitic endplate changes. Facet arthrosis primarily at L3-4, L4-5 and L5-S1. Minimal aortic calcification. RAD/L/S Spine Min 4 Views IMPRESSION: Normal alignment of the lumbar spine without fracture, osteolytic or blastic bone lesion. Mild degenerative disc narrowing slightly greater at the L4-L5 disc level with a greater degree of spondylitic endplate changes. Posterior facet arthrosis primarily at L3-4, L4-5 and L5-S1. I suspect spinal stenosis at L4-5. Spinal stenosis and foraminal narrowing is likely at this level. Electronically Signed: Holli Sylvester MD at 23:40 EST , Service support ,
== END ==
PROVIDERS: PCP Internal Medicine; Referring Provider Internal Medicine; Visit Provider Internal Medicine
DX: I65.23 Occlusion and stenosis of bilateral carotid arteries (principal); M79.671 Pain in right foot; M79.672 Pain in left foot; M54.16 Radiculopathy, lumbar region
CPT/HCPCS: 72110; 73630; 93880

== ENCOUNTER → 2020-02-28 10:02 | Outpatient (CLI) | payer OTHER, SELFPAY ==
[2019-05-30 09:19] VITALS: BMI 40.0
--- NOTE | 2020-02-28 10:11 | US_ITS ---
STUDY: ABDOMINAL ULTRASOUND - RIGHT UPPER QUADRANT REASON FOR VISIT: Male, 60 years old FATTY LIVER TECHNIQUE: Ultrasound evaluation of the right upper quadrant was performed with real-time and static tee-scale imaging. TECHNICAL QUALITY: Adequate. COMPARISON: Comparison is made with prior study dated 09/27/2019. FINDINGS: Liver: The liver is enlarged and measures 20 cm. There is increased echogenicity consistent with fatty infiltration. The bile ducts are within normal limits. There is hepatic color flow. The direction of portal flow is hepatopetal. There is no demonstrated mass lesion. Gallbladder: Normal distended gallbladder. The gallbladder wall measures 2.8 mm. There is a negative sonographic Scott''s sign. There is no pericholecystic fluid. There are no gallstones. Common Bile Duct (C.B.D.): The common bile duct measures 2.9 mm. Pancreas: Normal size of the head, body and tail of the pancreas. There is normal echogenicity of the pancreas. There is no demonstrated pancreatic mass or cyst. Right Kidney: Normal size of the right kidney. The right kidney measures 13 cm x 4.8 cm x 5.5 cm. Normal renal cortex. The right cortex measures 1.6 cm. There is no demonstrated renal mass or cyst. There is no right hydronephrosis. US/Liver IMPRESSION: Hepatomegaly and diffuse fatty infiltration of the liver. Electronically Signed: Johnathon Fulton, at 14:39 EST , Service support ,
== END ==
PROVIDERS: PCP Internal Medicine; Referring Provider Internal Medicine; Visit Provider Internal Medicine
DX: K76.0 Fatty (change of) liver, not elsewhere classified (principal)
CPT/HCPCS: 76705

== ENCOUNTER → 2020-09-30 08:55 | Outpatient (CLI) | payer BC, SELFPAY ==
[2019-05-30 09:19] VITALS: BMI 40.0
--- NOTE | 2020-09-30 09:01 | US_ITS ---
STUDY: ABDOMINAL ULTRASOUND - RIGHT UPPER QUADRANT REASON FOR VISIT: Male, 60 years old FATTY LIVER TECHNIQUE: Ultrasound evaluation of the right upper quadrant was performed with real-time and static tee-scale imaging. TECHNICAL QUALITY: Adequate. COMPARISON: Comparison is made with prior study dated 02/28/2020. FINDINGS: Liver: The liver is enlarged and measures 21 cm. There is increased echogenicity consistent with fatty infiltration. The bile ducts are within normal limits. There is hepatic color flow. The direction of portal flow is hepatopetal. There is no demonstrated mass lesion. Gallbladder: Normal distended gallbladder. The gallbladder wall measures 2.8 mm. There is a negative sonographic Scott''s sign. There is no pericholecystic fluid. There are no gallstones. Common Bile Duct (C.B.D.): The common bile duct measures 3.9 mm. Pancreas: Normal size of the head, body and tail of the pancreas. There is normal echogenicity of the pancreas. There is no demonstrated pancreatic mass or cyst. Right Kidney: Normal size of the right kidney. The right kidney measures 12.9 cm x 6.6 cm x 5.4 cm. Normal renal cortex. The right cortex measures 1.8 cm. There is no demonstrated renal mass or cyst. There is no right hydronephrosis. US/Liver IMPRESSION: Hepatomegaly and diffuse fatty infiltration of the liver. Electronically Signed: Johnathon Fulton MD at 15:27 EDT , Service support ,
== END ==
PROVIDERS: PCP Internal Medicine; Referring Provider Internal Medicine; Visit Provider Internal Medicine
DX: K76.0 Fatty (change of) liver, not elsewhere classified (principal)
CPT/HCPCS: 76705

== ENCOUNTER 2021-04-15 10:48 | Outpatient (RCR) | payer BC, SELFPAY ==
--- NOTE | 2021-04-15 12:08 | HP.PTEVAL_ITS ---
Patient's Visit Information GILSON BHATIA is a 61 year old M referred to Physical Therapy by Dr. Marybel Garcias DO with a diagnosis of R shoulder pain. Date of Evaluation: 04/15/21 Physical Therapist: Manish Bright, PT, ATC - Visit Plan Frequency: 2x /Week Duration: 3 Weeks Plan: Issue and instruct pt on HEP of rot cuff strengthening and scap stab ex's - Subjective Pt has had R shoulder pain for 3 weeks. Pt notes he fell on the ice at that time. Pt reports this resulted in immediate R shoulder pain. Pt reports he now has a difficult time with lifting over his head. Pt notes his pain is on the posterior and lateral aspect of his R shoulder. Pt is R hand dominant. Pt denies tingling or numbness in R UE at this time. Pt denies PMHx of R shoulder pain of this nature. Pt reports he had xrays which revealed no significant findings. 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 Pt reports occasional sleep difficulty, but notes he sleeps better is he sleeps on his R shoulder. Pt reports he is not limited with his IADL's, but notes he has difficulty with all activities. 0/10 pain at rest, 2/10 pain with movement. - Pain R shoulder pain Pain Intensity (Out of 10): 0 Pain Intensity Range: 2 - Objective Neuro: B UE sensation is WNL to light touch. B bicepital reflex= 2/3. Pa lpation: Minor pain along the distribution of the supraspinatus. ROM: L slhoulder flex= 165, abd= 170, ER= 75, IR WNL; R shoulder flex= 76, abd= 90, ER= 75, IR min limitation. MMT: R shoulder flex and ER 3+/5 and painful. All other motions 5/5 throughout. Special test: Pt has a pos empty can and neers impingement sign - Balance/Special Test Scores Quick DASH Score: 25.0000 - Goals Goal 1:: I with HEP of rotator cuff strengthening - Rehabilitation Potential Physical Therapy Diagnosis: Pt has R shoulder pain, weakness, and limited ROM secondary to possible rot cuff pathology Rehabilitation Potential: Good - Anticipated Interventions Patient/Client Instruction: Educate patient on: Condition, Plan of Care For the Purpose of:: To improve self management Therapeutic Exercise to Include: Strength training, Endurance training, Body mechanics, Active ROM, Scapular Strength/Stabilization For the Purpose of:: To decrease pain, To increase ROM, To improve ability to perform ADL's Cryotherapy (ice pack, ice massage): Yes For the Purpose of:: To decrease pain Thank you for the opportunity to evaluate your patient. For Medicare and Medicare HMO plans, please review the plan of care and approve it. It will need to be FAXED BACK to us at [phone] for Medicare purposes. For Medicare only, by signing this I certify the plan of care. Please let me know if there are questions or concerns regarding this plan of care. Physician Signature: Date:
--- NOTE | 2021-08-13 08:19 | HP.PT.NRP ---
GILSON BHATIA was seen in my office for initial evaluation on 04/15/21. The following Plan of Care was established for this patient: Initial Frequency: 2x /Week Initial Duration: 3 Weeks Patient/Client Instruction: Educate patient on: Condition, Plan of Care For the Purpose of:: To improve self management Therapeutic Exercise to Include: Strength training, Endurance training, Body mechanics, Active ROM, Scapular Strength/Stabilization For the Purpose of:: To decrease pain, To increase ROM, To improve ability to perform ADL's Cryotherapy (ice pack, ice massage): Yes For the Purpose of:: To decrease pain This patient was last seen in our office . Pertinent comments regarding their Physical therapy will appear below: Pt had to have surgery and so care has been transferred to another chart At this point I will be discontinuing this patient from physical therapy. I would be happy to see this patient again in the future if found appropriate by the physician. Thank you! Manish Bright, PT, ATC Balance/Gait/Functional tests - Balance/Special Test Scores Quick DASH Score: 25.0000
== END 2021-04-15 19:00 | disposition home or self-care (01) ==
LOC: PT 10:48
PROVIDERS: PCP Internal Medicine; Referring Provider Internal Medicine; Visit Provider Internal Medicine
DX: M25.511 Pain in right shoulder (principal); M65.332 Trigger finger, left middle finger
CPT/HCPCS: 97161

== ENCOUNTER → 2021-07-22 | Outpatient (CLI) | payer OTHER, SELFPAY ==
--- NOTE | 2021-07-22 10:35 | US_ITS ---
STUDY: ABDOMINAL ULTRASOUND - RIGHT UPPER QUADRANT REASON FOR VISIT: Male, 61 years old FATTY LIVER TECHNIQUE: Ultrasound evaluation of the right upper quadrant was performed with real-time and static tee-scale imaging. TECHNICAL QUALITY: Adequate. COMPARISON: Comparison is made with prior study 09/30/2020. FINDINGS: Liver: The liver is enlarged and measures 19.1 cm. There is increased echogenicity consistent with fatty infiltration. The bile ducts are within normal limits. There is hepatic color flow. The direction of portal flow is hepatopetal. There is no demonstrated mass lesion. Gallbladder: Normal distended gallbladder. The gallbladder wall measures 3 mm. There is a negative sonographic Scott''s sign. There is no pericholecystic fluid. There are no gallstones. Common Bile Duct (C.B.D.): The common bile duct measures 2 mm. Pancreas: Normal size of the head, body and tail of the pancreas. There is normal echogenicity of the pancreas. There is no demonstrated pancreatic mass or cyst. Right Kidney: Normal size of the right kidney. The right kidney measures 13.6 cm x 6.4 cm x 4.5 cm. Normal renal cortex. The right cortex measures 1.3 cm. There is no demonstrated renal mass or cyst. There is no right hydronephrosis. US/Abdomen Limited IMPRESSION: Hepatomegaly and fatty infiltration of the liver. Electronically Signed: Johnathon Fulton MD at 12:16 EDT ,
== END | disposition home or self-care (01) ==
LOC: US 10:32
PROVIDERS: PCP Internal Medicine; Visit Provider Internal Medicine
DX: I65.23 Occlusion and stenosis of bilateral carotid arteries (principal); K76.0 Fatty (change of) liver, not elsewhere classified
CPT/HCPCS: 76705

== ENCOUNTER → 2021-08-19 | Outpatient (CLI) | payer BC, SELFPAY ==
--- NOTE | 2021-08-19 08:06 | CT_ITS ---
STUDY: CT SCAN LOWER EXTREMITY LEFT REASON FOR EXAM: Male, 61 years old. PAIN. SHELDON protocol. RADIATION DOSAGE (If Supplied By Facility): CTDIvol = ( 18.97 ) mGy, DLP = ( 1622.15 ) mGycm. Individualized dose optimization techniques were used for this CT.? TECHNIQUE: Multiple axial tomographic images of the left hip joint, left knee joint and left ankle joints were obtained. Coronal and sagittal reconstructions obtained as well. COMPARISON: None. FINDINGS: Imaging of the left hip joint was obtained. The joint space is well-maintained. No significant abnormality is present. Imaging of the left knee joint was obtained. These are marked in degree of joint space narrowing with degenerative spur formation and tiny subchondral cysts in the medial tibial plateau are seen. There is evidence of degenerative spur formation along the anterior aspect of the distal femur causing mild to moderate degree of patellofemoral osteoarthritis. No significant joint effusion is seen. The ankle joint was imaged. There is evidence of a small calcaneal spur. CT/Extremity Lower without Contra IMPRESSION: Marked degree of osteoarthritis and degenerative spur formation of the medial compartment of the knee joint. Electronically Signed: Johnathon Fulton MD at 11:01 EDT ,
== END | disposition home or self-care (01) ==
LOC: CT 07:43
PROVIDERS: PCP Internal Medicine; Visit Provider Orthopaedic Surgery
DX: M17.12 Unilateral primary osteoarthritis, left knee (principal); M77.32 Calcaneal spur, left foot; M25.562 Pain in left knee
CPT/HCPCS: 73700

== ENCOUNTER 2021-08-20 09:30 | Outpatient (RCR) | payer OTHER, SELFPAY ==
--- NOTE | 2021-06-02 12:58 | HP.PTEVAL ---
Patient's Visit Information GILSON BHATIA is a 61 year old M referred to Physical Therapy by Dr. George Barkley MD with a diagnosis of R Rev TSA 05/26/21. Date of Evaluation: 06/02/21 Physical Therapist: Manish Bright, PT, ATC - Visit Plan Frequency: 2-3x /Week Duration: 4-6 Weeks Plan: Phase 1 shoulder protocal for 4 weeks. Then progress to phase 2 and 3 when appropriate. Cold pain for pain - Subjective DOS: 05/26/21. Pt had a reverse R TSA performed at that time. Pt reports he has been home and resting his shoulder since that date. Pt reports he has not had to take any pain meds at this time secondary to pain. No PMHx of R shoulder surgeries. Pt notes he had a torn R shoulder rotator cuff that was too bad to repair. No tingling or numbness at this time. Pt reports he has to wear his sling for approximately one month. Pt notes sleep difficulty at this time secondary to being uncomfortable. Pt is R hand dominant. 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 Pt reports R shoulder pain is 0/10 while at rest and 1/10 at worst over the past 24 hours - Pain R shoulder Pain Intensity (Out of 10): 0 Pain Intensity Range: 1 - Objective Neuro: B UE sensation is WNL to light touch. B bicipital reflex= 2/3. ROM: L shoulder AROM: flex= 175, abd= 175, ER= 80, IR WNL; R shoulder flex= 50, abd= 55, ER= 10, IR severely limited. Observation: R shoulder incision is healing nicely with no signs of infection at this time. MMT: L shoulder flex= 25, abd= 26, ER= 15, IR= 26. R shoulder not tested today secondary to lack of ROM - Balance/Special Test Scores Quick DASH Score: 27.7715 - Goals Goal 1:: Decrease R shoulder pain x 50% to aid with sleep Goal Time Frame: 4-6 Weeks Goal 2:: Increase R shoulder flex and abd ROM x 50 degrees to aid with overhead lifting Goal Time Frame: 4-6 Weeks Goal 3:: Increase R shoulder strength to within 10% of L shoulder strength to aid with RTW without limitation Goal Time Frame: 4-6 Weeks Goal 4:: I with HEP Goal Time Frame: 4-6 Weeks - Rehabilitation Potential Physical Therapy Diagnosis: Pt has R shoulder pain, weakness, and limited ROM secondary to a rev R TSA Rehabilitation Potential: Good - Anticipated Interventions Patient/Client Instruction: Educate patient on: Condition, Plan of Care For the Purpose of:: To improve self management Therapeutic Exercise to Include: Strength training, Endurance training, Flexibilty training, Passive ROM, Active ROM, Scapular Strength/Stabilization For the Purpose of:: To decrease pain, To increase ROM, To improve muscle performance and motor function Cryotherapy (ice pack, ice massage): Yes For the Purpose of:: To decrease pain Thank you for the opportunity to evaluate your patient. For Medicare and Medicare HMO plans, please review the plan of care and approve it. It will need to be FAXED BACK to us at [phone] for Medicare purposes. For Medicare only, by signing this I certify the plan of care. Please let me know if there are questions or concerns regarding this plan of care. Physician Signature: Date:
--- NOTE | 2021-07-15 11:55 | HP.PTREVAL ---
Dr. George Barkley MD, It has been my pleasure to treat GILSON BHATIA over the last 13 visits for R Rev TSA 05/26/21. Please see the progress note below for an update on the physical therapy plan of care! Subjective: Pt reports he is still having difficulty with any activity over his head due to lack of ROM and pain Objective/Function: R shoulder pain ranges from 0-4/10. R shoulder MMT: flex= 7.6, abd= 18, ER= 8, IR= 15 #F. R shoulder ROM: flex= 140, abd= 100 degrees. Pt has made significant warren with strength and ROM at this time, but demonstrates the need for skilled physical therapy to aid with further improving ROM and strength for IADL's and work requirements Plan Plan: Attempt to get 12 more PT visits approved to focus on R shoulder strength and ROM Balance/Gait/Functional tests - Balance/Special Test Scores Quick DASH Score: 11.3625 Goals Goal 1:: Decrease R shoulder pain x 50% to aid with sleep Goal Time Frame: 4-6 Weeks Goal Progress: Goal Met Goal 2:: Increase R shoulder flex and abd ROM x 50 degrees to aid with overhead lifting Goal Time Frame: 4-6 Weeks Goal Progress: Progressing Goal 3:: Increase R shoulder strength to within 10% of L shoulder strength to aid with RTW without limitation Goal Time Frame: 4-6 Weeks Goal Progress: Progressing Goal 4:: I with HEP Goal Time Frame: 4-6 Weeks Goal Progress: Goal Met Anticipated Interventions Patient/Client Instruction: Educate patient on: Condition, Plan of Care For the Purpose of:: To improve self management Therapeutic Exercise to Include: Strength training, Endurance training, Flexibilty training, Passive ROM, Active ROM, Scapular Strength/Stabilization For the Purpose of:: To decrease pain, To increase ROM, To improve muscle performance and motor function Cryotherapy (ice pack, ice massage): Yes For the Purpose of:: To decrease pain Please do not hesitate to contact me at [phone] by phone or if you have questions or concerns regarding this new plan of care! Sincerely, Manish Bright, PT, ATC
--- NOTE | 2021-08-20 10:38 | HP.PTREVAL ---
Dr. George Barkley MD, It has been my pleasure to treat GILSON BHATIA over the last 19 visits for R Rev TSA 05/26/21. Please see the progress note below for an update on the physical therapy plan of care! Subjective: No pain this date Objective/Function: R shoulder pain 0/10 at this time. 2/10 at worst. R shoulder strength is 50% of the L shoulder: flex= 11#F, abd=30#F, ER= 10#F. R shoulder ROM: flex= 140, abd= 120, ER= 50 degrees. Pt is showing progress, but continues to lack functional strength and ROM Plan Plan: Attempt to get 12 more PT visits to focus on strength and ROM Balance/Gait/Functional tests - Balance/Special Test Scores Quick DASH Score: 6.8175 Goals Goal 1:: Decrease R shoulder pain x 50% to aid with sleep Goal Time Frame: 4-6 Weeks Goal Progress: Goal Met Goal 2:: Increase R shoulder flex and abd ROM x 50 degrees to aid with overhead lifting Goal Time Frame: 4-6 Weeks Goal Progress: Progressing Goal 3:: Increase R shoulder strength to within 10% of L shoulder strength to aid with RTW without limitation Goal Time Frame: 4-6 Weeks Goal Progress: Progressing Goal 4:: I with HEP Goal Time Frame: 4-6 Weeks Goal Progress: Goal Met Anticipated Interventions Patient/Client Instruction: Educate patient on: Condition, Plan of Care For the Purpose of:: To improve self management Therapeutic Exercise to Include: Strength training, Endurance training, Flexibilty training, Passive ROM, Active ROM, Scapular Strength/Stabilization For the Purpose of:: To decrease pain, To increase ROM, To improve muscle performance and motor function Cryotherapy (ice pack, ice massage): Yes For the Purpose of:: To decrease pain Please do not hesitate to contact me at [phone] by phone or if you have questions or concerns regarding this new plan of care! Sincerely, Manish Bright, PT, ATC
--- NOTE | 2021-08-22 14:03 | HP.PT.NRP ---
GILSON BHATIA was seen in my office for initial evaluation on 06/02/21. The following Plan of Care was established for this patient: Initial Frequency: 2-3x /Week Initial Duration: 4-6 Weeks Patient/Client Instruction: Educate patient on: Condition, Plan of Care For the Purpose of:: To improve self management Therapeutic Exercise to Include: Strength training, Endurance training, Flexibilty training, Passive ROM, Active ROM, Scapular Strength/Stabilization For the Purpose of:: To decrease pain, To increase ROM, To improve muscle performance and motor function Cryotherapy (ice pack, ice massage): Yes For the Purpose of:: To decrease pain This patient was last seen in our office . Pertinent comments regarding their Physical therapy will appear below: Pt was declined by insurance to cont with PT at this time. Pt will continued with HEP for now. At this point I will be discontinuing this patient from physical therapy. I would be happy to see this patient again in the future if found appropriate by the physician. Thank you! Manish Bright, PT, ATC Balance/Gait/Functional tests - Balance/Special Test Scores Quick DASH Score: 6.8175
== END 2021-08-20 19:00 | disposition home or self-care (01) ==
LOC: PT 09:30
PROVIDERS: PCP Internal Medicine; Referring Provider Orthopaedic Surgery; Visit Provider Orthopaedic Surgery
DX: Z47.1 Aftercare following joint replacement surgery (principal); Z96.611 Presence of right artificial shoulder joint
CPT/HCPCS: 97110; 97140; 97161; 97164

== ENCOUNTER → 2021-08-20 | Outpatient (CLI) | payer BC, SELFPAY ==
[2021-08-20 12:04] LABS: Absolute Lymphocyte Count 0.53 X10^3/uL (0.83-4.51); Absolute Neutrophil Count 2.1 X10^3/uL (2.0-7.7); Basophil# 0.01 X10^3/uL; Basophil% 0.3 % (0-1); Eosinophil# 0.05 X10^3/uL; Eosinophils% 1.6 % (0-5); Hematocrit 39.6 % (40-54); Hemoglobin 13.3 g/dL (13.0-16.5); Lymphocyte # 0.53 X10^3/ul (0.83-4.51); Mean Corp Hgb Conc 33.6 g/dL (32-36); Mean Corpuscular Hgb 32.4 pg (27.0-32.0); Mean Corpuscular Volume 96.4 fL (80-94); Mean Platelet Vol. 9.3 fl (6.2-12.0); Monocyte# 0.46 X10^3/uL; Monocyte% 14.8 % (0-10); NRBC Flagged by Analyzer 0 % (0-5); Neutrophil # 2.05 X10^3/uL (2.7-7.7); POSITIVE COUNT YES; POSITIVE DIFFERENTIAL YES; Platelet Count 84 K/mm3 (150-450); RBC Distribution Width CV 14.6 % (11.6-14.6); RBC Distribution Width SD 51.7 fl (35.1-43.9); Red Blood Count 4.11 M/mm3 (4.6-6.2); White Blood Count 3.1 K/mm3 (4.4-11.0)
[2021-08-20 12:05] LABS: Differential Indicated SCAN CRITERIA MET
[2021-08-20 12:45] LABS: Albumin, Serum 3.5 g/dL (3.2-5.0); Anion Gap 5 (5-15); BUN 17 mg/dL (7-18); BUN/Creat Ratio 18.6 RATIO (10-20); Calcium,Total 9.3 mg/dL (8.5-10.1); Chloride 108 mmol/L (98-107); Creatinine, Serum 0.92 mg/dL (0.70-1.30); EST Glomerular Filtration Rate 89 mL/min (>60); Est Glom Filt Rate - Afr Amer 107 mL/min (>60); Glucose 122 mg/dL (74-106); Potassium 3.6 mmol/L (3.5-5.1); Sodium Level 140 mmol/L (136-145)
[2021-08-22 09:33] LABS: Pathologist Review Reviewed
== END | disposition home or self-care (01) ==
PROVIDERS: PCP Internal Medicine; Referring Provider Physician Assistant; Visit Provider Physician Assistant
DX: Z01.818 Encounter for other preprocedural examination (principal)
CPT/HCPCS: 36415; 80048; 82040; 83036; 85025

== ENCOUNTER → 2021-09-10 | Outpatient (CLI) | payer BC, SELFPAY ==
[2021-09-10 09:59] LABS: Absolute Lymphocyte Count 0.63 X10^3/uL (0.83-4.51); Absolute Neutrophil Count 2.4 X10^3/uL (2.0-7.7); Basophil# 0.01 X10^3/uL; Basophil% 0.3 % (0-1); Eosinophil# 0.09 X10^3/uL; Eosinophils% 2.4 % (0-5); Hematocrit 40.6 % (40-54); Hemoglobin 13.9 g/dL (13.0-16.5); Lymphocyte # 0.63 X10^3/ul (0.83-4.51); Lymphocyte % 16.7 % (19-41); Mean Corp Hgb Conc 34.2 g/dL (32-36); Mean Corpuscular Hgb 33.1 pg (27.0-32.0); Mean Corpuscular Volume 96.7 fL (80-94); Mean Platelet Vol. 9.4 fl (6.2-12.0); Monocyte# 0.58 X10^3/uL; Monocyte% 15.4 % (0-10); NRBC Flagged by Analyzer 0 % (0-5); Neutrophil # 2.44 X10^3/uL (2.7-7.7); Neutrophil % 64.7 % (47-70); POSITIVE COUNT YES; Platelet Count 89 K/mm3 (150-450); RBC Distribution Width SD 49.7 fl (35.1-43.9); White Blood Count 3.8 K/mm3 (4.4-11.0)
[2021-09-10 10:09] LABS: Albumin, Serum 3.5 g/dL (3.2-5.0); Anion Gap 5 (5-15); BUN 15 mg/dL (7-18); BUN/Creat Ratio 17.2 RATIO (10-20); Calcium,Total 8.9 mg/dL (8.5-10.1); Chloride 106 mmol/L (98-107); Creatinine, Serum 0.87 mg/dL (0.70-1.30); EST Glomerular Filtration Rate 94 mL/min (>60); Est Glom Filt Rate - Afr Amer 113 mL/min (>60); Glucose 121 mg/dL (74-106); Potassium 3.5 mmol/L (3.5-5.1); Sodium Level 139 mmol/L (136-145)
[2021-09-10 10:26] LABS: Hemoglobin A1c 5.9 % (3.8-5.6)
== END | disposition home or self-care (01) ==
LOC: MTLAB 07:52
PROVIDERS: PCP Internal Medicine; Referring Provider Physician Assistant; Visit Provider Physician Assistant
DX: Z01.818 Encounter for other preprocedural examination (principal); Z01.810 Encounter for preprocedural cardiovascular examination
CPT/HCPCS: 36415; 80048; 82040; 83036; 85025

== ENCOUNTER → 2022-02-03 | Outpatient (CLI) | payer BC, SELFPAY ==
--- NOTE | 2022-02-03 10:01 | CDU_ITS ---
Reason For Study: Carotid Stenosis Rt. Velocities/BP Lt. Velocities/BP Prox CCA 126.8/12.6 cm/sec. Prox CCA 141.2/24.8 cm/sec. Mid CCA 97.7/11.8 cm/sec. Mid CCA 103.8/20.4 cm/sec. Dist CCA 75.6/17.9 cm/sec. Dist CCA 88.5/22.6 cm/sec. Prox ICA 80.6/21.6 cm/sec. Prox ICA 80.9/20.4 cm/sec. Mid ICA 74.4/22.8 cm/sec. Mid ICA 106.3/33.9 cm/sec. Dist ICA 87.9/30.2 cm/sec. Dist ICA 125.3/35.8 cm/sec. Rt. ICA/CCA = 0.9. Lt. ICA/CCA = 1.2. Prox ECA 84.2/8.1 cm/sec. Prox ECA 85.3/10.6 cm/sec. Rt. Vert. 54.8/13.0 cm/sec. Lt. Vert. 67.7/16.0 cm/sec. Right Extracranial There is homogeneous, smooth atherosclerotic plaque noted in the right common carotid artery. There is heterogeneous, irregular atherosclerotic plaque noted in the right internal carotid artery. There is no significant atherosclerotic plaque noted in the right external carotid artery. Antegrade flow is noted in the right vertebral artery. Left Extracranial There is heterogeneous, irregular atherosclerotic plaque noted in the left common carotid artery. There is heterogeneous, irregular atherosclerotic plaque noted in the left internal carotid artery. There is heterogeneous, irregular atherosclerotic plaque noted in the left external carotid artery. Antegrade flow is noted in the left vertebral artery. Procedure Carotid Duplex 17050. This is a Carotid Duplex examination using B-mode, color flow and specral Doppler. The exam was diagnostic. Exam performed in department. VL/Carotid Duplex Ultrasound Interpretation Summary Mild (<50%) stenosis right extracranial internal carotid. Mild (<50%) stenosis left extracranial internal carotid. Flow within the vertebral arteries is antegrade bilaterally. Ordering Physician: Marybel Garcias Referring Physician: Marybel Garcias D.O. Performed By: Parish Jung RVT
== END | disposition home or self-care (01) ==
LOC: CVS 10:00
PROVIDERS: PCP Internal Medicine; Visit Provider Internal Medicine
DX: I65.23 Occlusion and stenosis of bilateral carotid arteries (principal)
CPT/HCPCS: 93880

== ENCOUNTER → 2022-02-04 | Outpatient (CLI) | payer BC, SELFPAY ==
--- NOTE | 2022-02-04 08:01 | US_ITS ---
STUDY: ABDOMINAL ULTRASOUND - RIGHT UPPER QUADRANT REASON FOR VISIT: Male, 62 years old . Fatty infiltration of the liver. TECHNIQUE: Ultrasound evaluation of the right upper quadrant was performed with real-time and static tee-scale imaging. TECHNICAL QUALITY: Adequate. COMPARISON: Comparison is made with prior study 07/22/2021. FINDINGS: Liver: The liver is enlarged and measures 18.5 cm. There is increased echogenicity consistent with fatty infiltration. The bile ducts are within normal limits. There is hepatic color flow. The direction of portal flow is hepatopetal. There is no demonstrated mass lesion. Gallbladder: Normal distended gallbladder. The gallbladder wall measures 3.0 mm. There is a negative sonographic Scott''s sign. There is no pericholecystic fluid. There are no gallstones. Common Bile Duct (C.B.D.): The common bile duct measures 4 mm. Pancreas: Normal size of the head, body and tail of the pancreas. There is normal echogenicity of the pancreas. There is no demonstrated pancreatic mass or cyst. Right Kidney: Normal size of the right kidney. The right kidney measures 12.9 cm x 5 cm x 5.4 cm. Normal renal cortex. The right cortex measures 5 cm. There is no demonstrated renal mass or cyst. There is no right hydronephrosis. US/Abdomen Limited IMPRESSION: Hepatomegaly and fatty infiltration of the liver. Electronically Signed: Johnathon Fulton MD at 12:45 EST ,
== END | disposition home or self-care (01) ==
LOC: US 08:00
PROVIDERS: PCP Internal Medicine; Visit Provider Internal Medicine
DX: K76.0 Fatty (change of) liver, not elsewhere classified (principal)
CPT/HCPCS: 76705

== ENCOUNTER → 2022-02-18 | Outpatient (CLI) | payer BC, SELFPAY ==
--- NOTE | 2022-02-18 12:56 | VDLE_ITS ---
Reason For Study: LLE SWELLING Procedure LEFT This is a venous duplex using B-mode, color GSV is normal. flow and spectral Doppler. CFV is compressible, spontaneous, phasic, Exam performed in department. competent, and demonstrates normal The exam was diagnostic. augmentation. A preliminary report was called and/or faxed FV is compressible, spontaneous, phasic, to @ [phone] @1:15 pm. competent and demonstrates normal augmentation. POP V is compressible, spontaneous, phasic, competent and demonstrates normal augmentation. T/P Trunk is compressible. PTV is compressible. LT PerV is compressible. VL/Venous Duplex US, Unilateral Interpretation Summary Deep veins of the left lower extremity are patent and compressible segmentally. There is no evidence of left lower extremity deep vein thrombosis. The left great saphenous vein kellie ears patent and compressible segmentally. Ordering Physician: Marybel Garcias Referring Physician: Marybel Garcias Performed By: Alvina Hagan RDCS, RVT
== END | disposition home or self-care (01) ==
LOC: CVS 12:54
PROVIDERS: PCP Internal Medicine; Referring Provider Internal Medicine; Visit Provider Internal Medicine
DX: M79.89 Other specified soft tissue disorders (principal)
CPT/HCPCS: 93971

== ENCOUNTER 2022-03-23 14:00 | Outpatient (RCR) | payer BC, SELFPAY ==
--- NOTE | 2022-02-03 16:26 | HP.PTEVAL ---
Patient's Visit Information GILSON BHATIA is a 62 year old M referred to Physical Therapy by SEVERO NESBITT with a diagnosis of L TKA. Date of Evaluation: 02/03/22 Physical Therapist: Manish Bright, PT, ATC - Visit Plan Frequency: 2-3x /Week Duration: 4-6 Weeks Plan: L knee PROM/mobs, stretching and strengthening, core stab ex's, bike, and HEP - Subjective DOS: 01/28/22. Pt reports he had a L TKA performed at that time. Pt reports he has been able to perform very little PT in the past 5 days as his mother just passed and he has been dealing with that. Pt reports he is glad he had the surgery at this time. Pt reports his pain is achy, but notes nothing like prior to the surgery. Pt reports he has a little tingling in his L LE at this time but denies any numbness. Pt reports he has sleep difficulty at this time secondary to discomfort. 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 Pt reports he has to negotiate stairs daily at home, which he is able to negotiate one stair at a time. Pt reports he has not been using an AD for last 4-5 days. 0/10 pain while at rest (its just stiff), 3/10 at worst (while stretching) - Pain L TKA Pain Intensity (Out of 10): 0 Pain Intensity Range: 3 - Objective Neuro: B LE sensation is WNL to light touch. B achilles 1/3. Girth at joint line: R knee 43 cm, L knee 49 cm. ROM: R knee 0-130, L knee 0-10-85. MMT: R knee flex= 41, ext= 50 #F; L knee flex= 13, R= 15 #F. Tu.03 - Balance/Special Test Scores Lower Extremity Functional Score: 51 - Goals Goal 1:: Decrease L knee pain x 50% to aid with sleep Goal Time Frame: 4-6 Weeks Goal 2:: Increase L knee ROM x 30 degrees to aid with IADL's Goal Time Frame: 4-6 Weeks Goal 3:: Increase L knee strength x 20#F to aid with work requirements Goal Time Frame: 4-6 Weeks Goal 4:: I with HEP Goal Time Frame: 4-6 Weeks - Rehabilitation Potential Physical Therapy Diagnosis: L knee pain, weakness, and limited ROM secondary to L TKA Rehabilitation Potential: Good - Anticipated Interventions Patient/Client Instruction: Educate patient on: Condition, Plan of Care For the Purpose of:: To facilitate caregiver knowledge Therapeutic Exercise to Include: Strength training, Endurance training, Balance training, Gait and locomotor training, Passive ROM, Active ROM, Dynamic Lumbar Stabilization For the Purpose of:: To decrease pain, To increase ROM, To improve muscle performance and motor function Cryotherapy (ice pack, ice massage): Yes For the Purpose of:: To decrease pain Thank you for the opportunity to evaluate your patient. For Medicare and Medicare HMO plans, please review the plan of care and approve it. It will need to be FAXED BACK to us at [phone] for Medicare purposes. For Medicare only, by signing this I certify the plan of care. Please let me know if there are questions or concerns regarding this plan of care. Physician Signature: Date:
--- NOTE | 2022-03-23 14:25 | HP.PTREVAL ---
SEVERO NESBITT, It has been my pleasure to treat GILSON BHATIA over the last 11 visits for L TKA 01/28/22. Please see the progress note below for an update on the physical therapy plan of care! Subjective: Pt reports no pain this date Objective/Function: L knee pain is 0/10 this date. L knee ROM: 0-124. L knee MMT: Flex= 41, ext= 34 #F. Pt has made excellent progress with ROM and pain, still lacks overall strength in L knee Plan Plan: Continue or discharge pending visit tomorrow Balance/Gait/Functional tests - Balance/Special Test Scores Lower Extremity Functional Score: 73 Goals Goal 1:: Decrease L knee pain x 50% to aid with sleep Goal Time Frame: 4-6 Weeks Goal Progress: Goal Met Goal 2:: Increase L knee ROM x 30 degrees to aid with IADL's Goal Time Frame: 4-6 Weeks Goal Progress: Goal Met Goal 3:: Increase L knee strength x 20#F to aid with work requirements Goal Time Frame: 4-6 Weeks Goal Progress: Progressing Goal 4:: I with HEP Goal Time Frame: 4-6 Weeks Goal Progress: Progressing Anticipated Interventions Patient/Client Instruction: Educate patient on: Condition, Plan of Care For the Purpose of:: To facilitate caregiver knowledge Therapeutic Exercise to Include: Strength training, Endurance training, Balance training, Gait and locomotor training, Passive ROM, Active ROM, Dynamic Lumbar Stabilization For the Purpose of:: To decrease pain, To increase ROM, To improve muscle performance and motor function Cryotherapy (ice pack, ice massage): Yes For the Purpose of:: To decrease pain Please do not hesitate to contact me at [phone] by phone or if you have questions or concerns regarding this new plan of care! Sincerely, Manish Bright, PT, ATC
== END 2022-03-23 19:00 | disposition home or self-care (01) ==
LOC: PT 14:00
PROVIDERS: PCP Internal Medicine
DX: M17.12 Unilateral primary osteoarthritis, left knee (principal)
CPT/HCPCS: 97110; 97140; 97161; 97164

== ENCOUNTER → 2022-09-07 | Outpatient (CLI) | payer BC, SELFPAY ==
--- NOTE | 2022-09-07 07:34 | MRI_ITS ---
MR Abdomen WO/W Contrast 09/07/2022 7:56 AM COMPARISON: None CLINICAL HISTORY: Cirrhosis F/U , NO COMPLAINTS TECHNIQUE: Multiplanar T1 and T2 weighted, diffusion and dynamic post-gadolinium images were obtained through the abdomen. 23 cc of IV Clariscan was used. FINDINGS: Liver: Nodular contour compatible with cirrhosis. No suspicious T2 hyperintense or arterially hyperenhancing lesions.. Gallbladder: Unremarkable Spleen: Enlarged. Pancreas: Unremarkable Adrenal Glands: Unremarkable Kidneys: Unremarkable GI Tract: Large ulcer in the anterior wall of the antrum of the stomach. Lymphadenopathy: Absent Vessels: Marked splenorenal and gastroesophageal varices. Recanalization of the umbilical vein. Ascites: Absent Bones: No suspicious lesions MRI/MRI Abd WITH and W/O Contrast IMPRESSION: No LI-RADS 5 lesions are seen in the liver. Recommend continued follow-up multiphase MR abdomen in 3-4 months. Cirrhotic liver with evidence of portal hypertension including splenomegaly and marked varices. Peptic ulcer disease. NOTE: The LI-RADS / OPTN classification of liver lesions has been adopted to standardize MRI and CT scan reporting in patients at risk for hepatocellular carcinoma. The imaging criteria for definite hepatocellular carcinoma are the same for the LI-RADS and OPTN systems. LI-RADS criteria and documentation are available online at [email or web address]/LIRADS LI-RADS 5 = OPTN 5 = Definitely hepatocellular carcinoma LI-RADS 4 = Probably hepatocellular carcinoma LI-RADS 3 = Indeterminate LI-RADS 2 = Probably benign LI-RADS 1 = Definitely benign Electronically Signed: Judd Ribera MD at 21:44 EDT ,
[2022-09-07 08:04] LABS: CREATININE FINGERSTICK < 0.9 mg/dL (0.70-1.30); EGFR FINGERSTICK > 60.0000 mL/min (>60)
== END | disposition home or self-care (01) ==
LOC: MRI 07:11
PROVIDERS: PCP Internal Medicine; Referring Provider Internal Medicine; Visit Provider Internal Medicine
DX: K74.60 Unspecified cirrhosis of liver (principal)
CPT/HCPCS: 74183; A9575; A4216

== ENCOUNTER → 2022-09-18 | Outpatient (CLI) | payer BC, SELFPAY ==
--- NOTE | 2022-09-18 08:26 | RAD_ITS ---
EXAM: XR LEFT SHOULDER COMPLETE, 2 OR MORE VIEWS CLINICAL INDICATION: Left shoulder pain TECHNIQUE: Two or more views of the left shoulder. COMPARISON: No relevant prior studies available. FINDINGS: BONES/JOINTS: Mild degenerative changes of the acromioclavicular joint. No acute fracture. No subluxation. Normal alignment. No sclerotic or destructive changes observed. SOFT TISSUES: Unremarkable. No soft tissue swelling or gas. No radiopaque foreign body. RAD/Shoulder min 2 Views IMPRESSION: Mild degenerative changes of the acromioclavicular joint. Electronically Signed: Manish Lima MD at 6:42 EDT ,
--- NOTE | 2022-09-18 09:00 | RAD_ITS ---
EXAM: XR LEFT SCAPULA COMPLETE CLINICAL INDICATION: Left shoulder pain TECHNIQUE: Frontal and Y-view of the left scapula. COMPARISON: No relevant prior studies available. FINDINGS: BONES/JOINTS: Unremarkable. No acute fracture. No subluxation. Normal alignment. Preservation of the joint space. No sclerotic or destructive changes observed. SOFT TISSUES: Unremarkable. No soft tissue swelling or gas. No radiopaque foreign body. RAD/Scapula IMPRESSION: Negative left scapula x-rays. Electronically Signed: Manish Lima MD at 6:42 EDT ,
== END | disposition home or self-care (01) ==
LOC: MTRAD 08:26
PROVIDERS: PCP Internal Medicine; Referring Provider Internal Medicine; Visit Provider Internal Medicine
DX: M25.512 Pain in left shoulder (principal)
CPT/HCPCS: 73010; 73030

== ENCOUNTER 2022-10-08 10:00 | Outpatient (RCR) | payer BC, SELFPAY ==
--- NOTE | 2022-09-23 17:09 | HP.PTEVAL_ITS ---
Patient's Visit Information Visit Information Visit Information: GILSON BHATIA is a 62 year old M referred to Physical Therapy by DAWSON YAÑEZ with a diagnosis of CERVICAL RADICULAR PAIN. Date of Evaluation: 09/23/22 Physical Therapist: Primo Stone, PT, Cert MDT, OCS Visit Plan Frequency: 2x /Week Duration: 4 Weeks Plan: PT INTERVETIONS ICTX 17#[id number]# [id number] ,US ,MANUAL THERAPY ,CERVICAL ROM AND POSTURAL EX'S Subjective Subjective: This 62 y/o male presents to physical therapy with cervical pain. Patient has neck for ~ 6weeks . Patient pain is insidious onset of left cervical pain. Patient seen Dr. Garcias recommended to see [facility] floor specialist who recommended PT and x-rays DDD. Patient was given gabapentin. Patient was given meloxicam and and prednisone. Patient aggravating factors sitting ,sleeping . Alleviating factors rest. Denies paresthesia/tingling -. Patient has occasional radiculopathy in arm tricep. Denies RAGLAND/tinnitus/nausea. Patient pain affects sleeping . No trauma . No prior treatment. Patient pain affects QOL and function. Patient goals to decrease pain. 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 Worse pain 6-7 /10 at night SOCAIL: VOCATION: [place] Pain Left Neck: Pain Intensity (Out of 10): 1 Pain Intensity Range: 10 Objective Objective: POSTURE: mild forward posture NEURO: denies paresthesia/tingling ,reflexes C5-6-7 1/3 PALPATION: unremarkable AROM: BUE WFL CERVICAL ROM: flexion min loss ,rotation mod loss ,lateral flexion mod loss ,extension mod MMT: BUE grossly 4/5 Special Tests C/S Radiculapathy - Left Upper limb tension test: Negative C/S Radiculapathy - Right Upper limb tension test: Negative C/S Radiculapathy - Left Spurlings: Negative C/S Radiculapathy - Right Spurlings: Negative C/S Radiculapathy - Left Cervical distraction: Negative C/S Radiculapathy - Right Cervical distraction: Negative C/S Radiculapathy - Left Relief test: Negative Sharp Tasha: Negative Vertebral Artery Test: Negative Alar Ligament Test: Negative Balance/Special Test Scores Oswestry Neck Score: 8 Goals Goal 1:: Patient to be I with HEP Goal Time Frame: 4-6 Weeks Goal 2:: Patient to demonstrate 50% improvement with decrease pain and improved function and night pain Goal Time Frame: 4-6 Weeks Goal 3:: Patient to improve cervical ROM for function of recovery to work Goal Time Frame: 4-6 Weeks Goal 4:: Patient to improve neck oswestry by 5 points to improve QOL Goal Time Frame: 4-6 Weeks Rehabilitation Potential Physical Therapy Diagnosis: This patient has cervical pain with possible stenosis and/or disc with patient pain worse with positioning especially sleeping with decrease cervical ROM thus will benefit from skilled PT Rehabilitation Potential: Good Anticipated Interventions Patient/Client Instruction: Educate patient on: Condition and Plan of Care For the Purpose of:: To decrease pain, To increase ROM, To improve muscle performance and motor function, To improve ability to perform ADL's, To increase tolerance to activity/condition/position, To improve ability of physical actions for home/community/work/leisure and To increase flexibility/ROM Therapeutic Exercise to Include: Postural training and Flexibilty training For the Purpose of:: To decrease pain, To increase ROM, To improve muscle performance and motor function, To improve ability to perform ADL's, To increase tolerance to activity/condition/position, To improve ability of physical actions for home/community/work/leisure, To improve health of tissue, To decrease soft tissue restriction and To increase flexibility/ROM Manual Therapy Techniques to Include: Mobilization Comment: CERVICAL TARCTION For the Purpose of:: To decrease pain, To increase ROM, To improve muscle performance and motor function, To improve ability to perform ADL's, To increase tolerance to activity/condition/position, To improve ability of physical actions for home/community/work/leisure, To improve health of tissue and To decrease soft tissue restriction TENS: Yes IF ES: Yes Cryotherapy (ice pack, ice massage): Yes Thermo therapy (hot pack): Yes Ultrasound (thermal/non thermal): Yes For the Purpose of:: To decrease pain, To increase ROM, To improve nutrient delivery to tissue, To increase oxygenation perfusion, To improve health of tissue and To decrease soft tissue restriction Text: Thank you for the opportunity to evaluate your patient. For Medicare and Medicare HMO plans, please review the plan of care and approve it. It will need to be FAXED BACK to us at [phone] for Medicare purposes. For Medicare only, by signing this I certify the plan of care. Please let me know if there are questions or concerns regarding this plan of care. Physician Signature: Date:
== END 2022-10-08 19:00 | disposition home or self-care (01) ==
LOC: PT 10:00
PROVIDERS: PCP Internal Medicine
DX: M54.12 Radiculopathy, cervical region (principal)
CPT/HCPCS: 97012; 97035; 97162

== ENCOUNTER → 2023-02-17 | Outpatient (CLI) | payer MEDICARE, BC, SELFPAY ==
--- NOTE | 2023-02-17 09:04 | US_ITS ---
STUDY: ABDOMINAL ULTRASOUND - RIGHT UPPER QUADRANT; ELASTOGRAPHY REASON FOR VISIT: Male, 63 years old. Cirrhosis. Fatty position of the liver. TECHNIQUE: Ultrasound evaluation of the right upper quadrant was performed with real-time and static tee-scale imaging. Point quantification shear wave elastography was performed ([employer]). TECHNICAL QUALITY: Limited. Examination limited due to a combination of factors including obesity and bowel gas. COMPARISON: Comparison is made with prior study dated February 04, 2022. FINDINGS: Liver: The liver measures 20.3 cm. There is increased echogenicity consistent with fatty infiltration. The bile ducts are within normal limits. There is hepatic color flow. The direction of portal flow is hepatopetal. There is no demonstrated mass lesion. Median liver stiffness measured 9.2 kPa. Gallbladder: Normal distended gallbladder. The gallbladder wall measures 3.1 mm. There is a negative sonographic Scott''s sign. There is no pericholecystic fluid. There are no gallstones. Common Bile Duct (C.B.D.): The common bile duct measures 3.2 mm. Pancreas: Limited visualization of the pancreas due to overlying bowel gas. Right Kidney: Normal size of the right kidney. The right kidney measures 12.8 cm x 5.3 cm x 5.6 cm. Normal renal cortex. The right cortex measures 1.5 cm. There is no demonstrated renal mass or cyst. There is no right hydronephrosis. US/ABD Limited w/ Elastography IMPRESSION: 1. Liver stiffness measures 9.2 kPa compatible with F2-F3 (Mild to moderate liver fibrosis) Metavir score. Electronically Signed: Johnathon Fulton MD at 10:47 EST ,
--- NOTE | 2023-02-17 09:04 | CDU_ITS ---
Reason For Study: STENOSIS Rt. Velocities/BP Lt. Velocities/BP Prox CCA 102.3/11.6 cm/sec. Prox CCA 131.3/14.4 cm/sec. Mid CCA 83.4/16.3 cm/sec. Mid CCA 129.5/18.1 cm/sec. Dist CCA 95.7/18.2 cm/sec. Dist CCA 88.3/19.5 cm/sec. Prox ICA 105.2/21.2 cm/sec. Prox ICA 98.1/23.2 cm/sec. Mid ICA 88.3/19.5 cm/sec. Mid ICA 73.0/17.1 cm/sec. Dist ICA 90.7/28.1 cm/sec. Dist ICA 57.4/17.1 cm/sec. Rt. ICA/CCA = 105.2/83.4=1.3. 98.1/129.5=0.8. Prox ECA 123.5/12.1 cm/sec. Prox ECA 103.0/10.9 cm/sec. Rt. Vert. 72.89/12.3 cm/sec. Lt. Vert. 67.0/14.2 cm/sec. Right Extracranial There is homogeneous, smooth atherosclerotic plaque noted in the right common carotid artery. There is heterogeneous, irregular atherosclerotic plaque noted in the right internal carotid artery. There is no significant atherosclerotic plaque noted in the right external carotid artery. Antegrade flow is noted in the right vertebral artery. Left Extracranial There is heterogeneous, irregular atherosclerotic plaque noted in the left common carotid artery. There is heterogeneous, irregular atherosclerotic plaque noted in the left internal carotid artery. There is no significant atherosclerotic plaque noted in the left external carotid artery. Antegrade flow is noted in the left vertebral artery. Procedure Carotid Duplex [id number]. This is a Carotid Duplex examination using B-mode, color flow and specral Doppler. Exam performed in department. VL/Carotid Duplex Ultrasound Interpretation Summary Mild (<50%) stenosis right extracranial internal carotid. Mild (<50%) stenosis left extracranial internal carotid. Flow within the vertebral arteries is antegrade bilaterally. Ordering Physician: Marybel Garcias Referring Physician: Marybel Garcias Performed By: Alvina Hagan, MANSOOR, RVT
== END | disposition home or self-care (01) ==
LOC: CVS 09:03
PROVIDERS: PCP Internal Medicine; Referring Provider Internal Medicine; Visit Provider Internal Medicine
DX: I65.23 Occlusion and stenosis of bilateral carotid arteries (principal); K74.60 Unspecified cirrhosis of liver
CPT/HCPCS: 76705; 76981; 93880

== ENCOUNTER → 2023-02-19 | Outpatient (CLI) | payer MEDICARE, BC, SELFPAY ==
--- NOTE | 2023-02-19 07:57 | CT_ITS ---
INDICATION: Atypical chest pain and shortness of breath EXAMINATION: CT CHEST WITH CONTRAST - CT Chest W/ Contrast Injection TECHNIQUE: Helically acquired images were obtained of the chest following IV contrast. A radiation dose optimization technique was used for this scan. IV Contrast dosage and agent: 100 mL Isovue-370 contrast COMPARISON: None. FINDINGS: LUNGS, PLEURA AND LARGE AIRWAYS: Lung windows show the lungs are normally expanded with a band of atelectasis in the right lower lung field. There is no organized infiltrate, effusion, or suspicious noncalcified mass or nodule. There are multiple old healed and ununited left rib fractures. THYROID: No thyroid lesions. HEART AND PERICARDIUM: Heart size is normal. No pericardial effusion. VESSELS: Thoracic aorta is not dilated. No aortic dissection. No obvious central pulmonary embolism although this study was not performed with the pulmonary embolism protocol. MEDIASTINUM AND RACH: No suspicious mediastinal or hilar adenopathy. There is a small retrocardiac hiatal hernia with evidence to suspect GE reflux. UPPER ABDOMEN: Limited cuts through the upper abdomen show diffuse fatty infiltration of the liver with serpiginous varices noted along with splenomegaly. BONES: No suspicious lytic or blastic abnormality. CT/Chest WITH Contrast IMPRESSION: No acute pulmonary process, there is a band of scarring or atelectasis in the right lower lung field, no organized infiltrate or effusion or suspicious noncalcified mass or nodule No suspicious adenopathy Small hiatal hernia with GE reflux Fatty liver with some nodular border suggesting underlying cirrhosis, there is associated splenomegaly and multiple serpiginous varices noted in the upper abdomen Electronically Signed: Noe Gomez MD at 15:08 EST ,
[2023-02-19 08:38] LABS: CREATININE FINGERSTICK < 1.0 mg/dL (0.70-1.30); EGFR FINGERSTICK > 60.0000 mL/min (>60)
== END | disposition home or self-care (01) ==
LOC: CT 07:54
PROVIDERS: PCP Internal Medicine; Referring Provider Internal Medicine; Visit Provider Internal Medicine
DX: R07.9 Chest pain, unspecified (principal)
CPT/HCPCS: 71260; Q9967

== ENCOUNTER 2023-05-01 18:59 | Emergency (ER) | payer MEDICARE, BC, SELFPAY ==
[2023-05-01 19:00] VITALS: BP 174/74; PULSE 105; RESP 16; TEMP 37.7; O2SAT 95; BMI 38.7
--- NOTE | 2023-05-01 19:10 | EX.ED.DYSGE1 ---
HPI <NED Kern - Last Filed: 05/01/23 20:21> History of Present Illness Chief Complaint: Cold Sx Narrative Narrative: 63-year-old male has had 3 days of a dry cough. He reports fever and chills, headache, dry cough, and fatigue. He has coughed so much he strained his abdominal muscles. No chest pain or shortness of breath. He is a former smoker. He states he has been told he might have asthma and uses an inhaler once before bedtime. He took a negative COVID test at home yesterday. PFSH <NED Kern - Last Filed: 05/01/23 20:21> [facility] Medical History (Updated 05/01/23 @ 20:13 by NED Kern) Actinic keratosis Atherosclerotic heart disease of [place] coronary artery without angina pectoris Bilateral carotid artery stenosis Carpal tunnel syndrome Cirrhosis Colon polyp COPD (chronic obstructive pulmonary disease) Erectile dysfunction Essential (primary) hypertension Fatty liver GERD (gastroesophageal reflux disease) Hearing loss Hyperlipidemia Obesity Obstructive sleep apnea Osteoarthritis PUD (peptic ulcer disease) Thrombocytopenia Thyromegaly Type 2 diabetes mellitus Home Medications amlodipine 5 mg tablet 5 mg PO BID 90 days 05/30/18 [History Last Taken 06/30/18] meloxicam 15 mg tablet 15 mg PO QPM 05/30/19 [History Last Taken Unknown] omeprazole 20 mg capsule,delayed release 20 mg PO Q12H 05/30/19 [History Last Taken Unknown] tadalafil 5 mg tablet (Cialis) 5 mg PO DAILY 05/30/19 [History Last Taken Unknown] ascorbic acid (vitamin C) 1,000 mg tablet 1 g PO DAILY 01/01/22 [History Last Taken Unknown] hydrochlorothiazide 25 mg tablet 25 mg PO DAILY 90 days #90 tabs 01/01/22 [History Last Taken Unknown] carvedilol 12.5 mg tablet (Coreg) 12.5 mg PO BID 12/17/22 [History Last Taken Unknown] duloxetine 30 mg capsule,delayed release 30 mg PO DAILY 12/17/22 [History Last Taken Unknown] gabapentin 100 mg capsule 100 mg PO DAILY 12/17/22 [History Last Taken Unknown] losartan 50 mg tablet 50 mg PO QPM 12/17/22 [History Last Taken Unknown] omega 8-jxs-ebq-fish oil 300 mg-1,000 mg capsule (Fish Oil) 1 cap PO DAILY 12/17/22 [History Last Taken Unknown] Allergy/AdvReac Type Severity Reaction Status Date / Time Piavaph-QKV-BhS Reductase AdvReac myalgia Verified 05/01/23 18:59 Inhibitor [Lniweiy-Kyz-Vsh Reductase Inhibitor] Family History Brother Hypertension Mother Hypertension Hemochromatosis Diabetes Father Myocardial infarction form [place] age 74 Surgical History Amputation finger excision left olecranon bursae heel spur excision History of colonoscopy History of left heart catheterization (06/30/18) Social History Smoking Status: Former smoker caffeine: Yes Type: tea Number of servings: 6 ROS <NED Kern - Last Filed: 05/01/23 20:21> ROS ED ROS Narrative Constitutional: Positive for fever, chills, malaise. CVS: Negative for chest pain, syncope. Respiratory: Positive for cough. Negative for shortness of breath, cough. GI: Negative for abdominal pain, nausea, vomiting, diarrhea. EXAM <NED Kern - Last Filed: 05/01/23 20:21> Physical Exam Narrative Exam Narrative: CONST: Patient sitting in no acute distress. EYES: Normal inspection. NECK: Normal inspection. RESP: No respiratory distress, CTAB. CVS: Regular rate and rhythm, no murmur, no gallop. SKIN: Color normal, no rash, warm, dry, intact. EXTREMITIES: Normal appearance, no pedal edema. NEURO: Oriented x4. PSYCH: Normal affect. Const Vital Signs: 05/01/23 19:00 05/01/23 19:26 05/01/23 19:30 Temperature 99.9 F H 100.2 F H Temperature Source Temporal Oral Pulse Rate 105 H 100 Respiratory Rate 16 16 Respiratory Effort Normal Non-Labored Respiratory Pattern Normal Blood Pressure 174/74 H 158/68 H Blood Pressure Mean 107 98 Pulse Ox 95 96 Oxygen Delivery Method Room Air 05/01/23 20:01 05/01/23 20:01 Temperature 100.6 F H Temperature Source Oral Pulse Rate 102 H 100 Respiratory Rate 16 21 H Respiratory Effort Respiratory Pattern Blood Pressure 161/86 H Blood Pressure Mean 111 Pulse Ox 96 94 Oxygen Delivery Method Room Air Room Air <Dr. Gilles Estrada DO - Last Filed: 05/01/23 20:25> Physical Exam Const Vital Signs: 05/01/23 19:00 05/01/23 19:26 05/01/23 19:30 Temperature 99.9 F H 100.2 F H Temperature Source Temporal Oral Pulse Rate 105 H 100 Respiratory Rate 16 16 Respiratory Effort Normal Non-Labored Respiratory Pattern Normal Blood Pressure 174/74 H 158/68 H Blood Pressure Mean 107 98 Pulse Ox 95 96 Oxygen Delivery Method Room Air 05/01/23 20:01 05/01/23 20:01 Temperature 100.6 F H Temperature Source Oral Pulse Rate 102 H 100 Respiratory Rate 16 21 H Respiratory Effort Respiratory Pattern Blood Pressure 161/86 H Blood Pressure Mean 111 Pulse Ox 96 94 Oxygen Delivery Method Room Air Room Air [facility] <NED Kern - Last Filed: 05/01/23 20:21> [facility] Narrative Medical decision making narrative: Patient has 3 days of upper respiratory symptoms. He appears mildly ill but nontoxic. He is hypertensive, HR 105, otherwise normal vital signs. His exam overall is benign. Lungs are clear. CXR shows no acute process. Viral swab is positive for influenza A. Temperature is rising slightly to 100.2 F so he was given Tylenol. I discussed symptomatic management and he was discharged in stable condition. Radiography Diagnostic Testing: Clinical Impression(s) from Imaging Studies Chest X-Ray 05/01/23 19:20 IMPRESSION: Mild interstitial prominence. Electronically Signed: Lavell Macdonald DO at 19:38 EDT Reading Location ID and State: [facility] / [place] Tel [phone], Service support , ED attending interpretation of 2-view chest x-ray shows normal heart size, no acute infiltrate, edema, or effusion. <Dr. Gilles Estrada DO - Last Filed: 05/01/23 20:25> [facility] Narrative Medical decision making narrative: Patient has 3 days of upper respiratory symptoms. He appears mildly ill but nontoxic. He is hypertensive, HR 105, otherwise normal vital signs. His exam overall is benign. Lungs are clear. CXR shows no acute process. Viral swab is positive for influenza A. Temperature is rising slightly to 100.2 F so he was given Tylenol. I discussed symptomatic management and he was discharged in stable condition. This patient was seen with a PA/[employer] Individually assessed they patient including history and physical. I have reviewed everything on the chart that is available and agree with the documentation provided by the PA/[employer]ER including discussion about the assessment, treatment plan, discussion, and return precautions. Patient presenting with viral symptoms. He tested positive for influenza today. Chest x-ray my interpretation shows no acute process. Patient temperature 100.2 and he is given Tylenol. I recommended he take Tylenol and ibuprofen in alternating doses. He is outside the window for Tamiflu. Patient will be discharged home in stable condition return precautions given. Impression: 1. Influenza A 2. Febrile illness Lab Data Attestation: I reviewed the patient's lab results. Radiography Diagnostic Testing: Clinical Impression(s) from Imaging Studies Chest X-Ray 05/01/23 19:20 IMPRESSION: Mild interstitial prominence. Electronically Signed: Lavell Macdonald DO at 19:38 EDT Reading Location ID and State: [facility] / [place] Tel [phone], Service support , Discharge Plan Triage Chief Complaint: Cold Sx ED Midlevel Provider: Swetha Klein ED Provider: Gilles Estrada Dx/Rx/DC Orders Clinical Impression: Influenza A Instructions: ED Influenza (Adult) Prescriptions: No Action amlodipine 5 mg tablet 5 mg PO BID 90 Days hydrochlorothiazide 25 mg tablet 25 mg PO DAILY 90 Days Qty: 90 meloxicam 15 mg tablet 15 mg PO QPM Patient Comments: TAKE 1 TABLET BY MOUTH ONCE DAILY NEEDED WITH FOOD omeprazole 20 mg capsule,delayed release(DR/EC) 20 mg PO Q12H tadalafil [Cialis] 5 mg tablet 5 mg PO DAILY ascorbic acid (vitamin C) 1,000 mg tablet 1 g PO DAILY gabapentin 100 mg capsule 100 mg PO DAILY Rx Instructions: 2 tablets tid carvedilol [Coreg] 12.5 mg tablet 12.5 mg PO BID Rx Instructions: must administer with a meal/food duloxetine 30 mg capsule,delayed release(DR/EC) 30 mg PO DAILY omega 0-mtq-xio-fish oil [Fish Oil] 300-1,000 mg capsule 1 cap PO DAILY losartan 50 mg tablet 50 mg PO QPM Primary Care Provider: Marybel Garcias Referrals: Marybel Garcias DO [Primary Care Provider] - Activity Restrictions/Additional Instructions: You have influenza A. This is a viral illness treated with rest, fluids, and alternating Tylenol and Motrin as needed. You can take tjub-gwg-aimflez cough medication such as Robitussin. Disposition Disposition: Home, Self Care
--- NOTE | 2023-05-01 19:20 | RAD_ITS ---
INDICATION: cough EXAMINATION/TECHNIQUE: X-RAY - XR Chest 2 Views COMPARISON: FINDINGS: LINES/DEVICES: None. LUNGS: No consolidation, edema or effusion. Mild interstitial prominence. No pneumothorax. MEDIASTINUM AND CARDIOVASCULAR STRUCTURES: Cardiac silhouette not enlarged. Central airways and mediastinal contour are unremarkable. BONES AND SOFT TISSUES: Old left rib fractures. There is a right shoulder prosthesis. RAD/Chest PA and Lateral IMPRESSION: Mild interstitial prominence. Electronically Signed: Lavell Macdonald DO at 19:38 EDT ,
[2023-05-01 19:30] VITALS: BP 158/68; PULSE 100; RESP 16; TEMP 37.9; O2SAT 96
[2023-05-01 20:01] VITALS: BP 161/86; PULSE 100; PULSE 102; RESP 16; RESP 21; TEMP 38.1; O2SAT 94; O2SAT 96
[2023-05-01 20:24] VITALS: BP 161/86; PULSE 99; RESP 20; TEMP 38.1; O2SAT 93
[2023-05-01] MEDS: Acetaminophen 500 MG Tablet 1000 MG PO (20:28)
== END 2023-05-01 20:29 | disposition home or self-care (01) ==
PROVIDERS: Emergency Provider Student in an Organized Health Care Education/Training Program; PCP Internal Medicine; Visit Provider Student in an Organized Health Care Education/Training Program
DX: J10.1 Influenza due to other identified influenza virus with other respiratory manifestations (principal); J44.9 Chronic obstructive pulmonary disease, unspecified; E11.9 Type 2 diabetes mellitus without complications; Z87.891 Personal history of nicotine dependence; R50.9 Fever, unspecified; I25.10 Atherosclerotic heart disease of native coronary artery without angina pectoris; E78.5 Hyperlipidemia, unspecified; K21.9 Gastro-esophageal reflux disease without esophagitis; G47.33 Obstructive sleep apnea (adult) (pediatric)
CPT/HCPCS: 71046; 87631; 99282

== ENCOUNTER 2023-05-27 10:00 | Outpatient (RCR) | payer BC, MEDICARE, OTHER, SELFPAY ==
--- NOTE | 2022-12-30 09:14 | HP.PTEVAL ---
Patient's Visit Information Visit Information Visit Information: GILSON BHATIA is a 62 year old M referred to Physical Therapy by JENNYFER SOUTH with a diagnosis of R TKA 12/28/22. Date of Evaluation: 12/30/22 Physical Therapist: Manish Bright, PT, ATC Visit Plan Frequency: 2-3x /Week Duration: 4-6 Weeks Plan: R knee PROM/mobs, stretching and strengthening, balance and proprio, bike, and HEP Subjective Subjective: DOS: 12/28/22. Pt reports he had a R TKA performed at that time. Pt reports he had severe pain for approximately 4 years prior to this surgery. Pt notes he feels much better at this point as his R knee used to grind and have severe pain prior to his surgery. Pt reports his pain is getting less and less every day. pt reports he is able to go on without taking his pain meds at this time although he does take a Tylenol every morning and at night. Pt reports he has stairs at home that he negotiates one step at a time. 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 Pt denies tingling or numbness at this time. Pt reports pain does wake him up at night, but he is able to readjust and go back to bed. 0/10 pain at rest, 2/10 pain at worst Pain R TKA: Pain Intensity (Out of 10): 0 Pain Intensity Range: 2 Objective Objective: Neuro: B LE sensation is WNL to light touch. Girth at joint line: L knee 44 cm, R knee 45 cm ROM: R knee 0-109 degrees, L knee 0-120 degrees MMT: R knee flex= 32, ext= 24 #F; L knee flex= 37, ext= 43 #F Tu.54 Balance/Special Test Scores WOMAC Total Score: 17 WOMAC Percentatge: 82.3000 Goals Goal 1:: Decrease R knee pain x 50 % to aid with sleep Goal Time Frame: 4-6 Weeks Goal 2:: Increase R knee strength x 5-10#F with flexion and extension to aid with stair negotiation Goal Time Frame: 4-6 Weeks Goal 3:: Increase R knee ROM x 15 degrees to aid with return to work without limitations Goal Time Frame: 4-6 Weeks Goal 4:: I with HEP Goal Time Frame: 4-6 Weeks Rehabilitation Potential Physical Therapy Diagnosis: Pt has R knee pain, weakness, and limited ROM secondary to R TKA Rehabilitation Potential: Good Anticipated Interventions Patient/Client Instruction: Educate patient on: Condition and Plan of Care For the Purpose of:: To improve self management Therapeutic Exercise to Include: Strength training, Endurance training, Balance training, Flexibilty training, Passive ROM, Active ROM and Dynamic Lumbar Stabilization For the Purpose of:: To decrease pain, To increase ROM and To improve muscle performance and motor function Cryotherapy (ice pack, ice massage): Yes For the Purpose of:: To decrease pain Text: Thank you for the opportunity to evaluate your patient. For Medicare and Medicare HMO plans, please review the plan of care and approve it. It will need to be FAXED BACK to us at [phone] for Medicare purposes. For Medicare only, by signing this I certify the plan of care. Please let me know if there are questions or concerns regarding this plan of care. Physician Signature: Date:
--- NOTE | 2023-01-21 12:32 | HP.PTREVAL ---
Re-Evaluation Intro: JENNYFER SOUTH, It has been my pleasure to treat GILSON BHATIA over the last 6 visits for R TKA 12/28/22. Please see the progress note below for an update on the physical therapy plan of care! Subjective Subjective: Pt reports R knee pain is minimal unless I do something wrong Objective Objective/Function: R knee pain ranges from 0-3/10 R knee ROM: 0-6-115 degrees R knee MMT: flex= 40, ext= 46 #F Pt is progressing well toward Rx goals Plan Plan Plan: R knee PROM/mobs, stretching and strengthening, balance and proprio, bike, and HEP Balance/Gait/Functional tests Balance/Special Test Scores WOMAC Total Score: 7 WOMAC Percentage: 92.7100 Goals Goals Goal 1:: Decrease R knee pain x 50 % to aid with sleep Goal Time Frame: 4-6 Weeks Goal Progress: Progressing Goal 2:: Increase R knee strength x 5-10#F with flexion and extension to aid with stair negotiation Goal Time Frame: 4-6 Weeks Goal Progress: Progressing Goal 3:: Increase R knee ROM x 15 degrees to aid with return to work without limitations Goal Time Frame: 4-6 Weeks Goal Progress: Progressing Goal 4:: I with HEP Goal Time Frame: 4-6 Weeks Goal Progress: Progressing Anticipated Interventions Anticipated Interventions Patient/Client Instruction: Educate patient on: Condition and Plan of Care For the Purpose of:: To improve self management Therapeutic Exercise to Include: Strength training, Endurance training, Balance training, Flexibilty training, Passive ROM, Active ROM and Dynamic Lumbar Stabilization For the Purpose of:: To decrease pain, To increase ROM and To improve muscle performance and motor function Cryotherapy (ice pack, ice massage): Yes For the Purpose of:: To decrease pain Re-Evaluation Ending Re-evaluation ending: Please do not hesitate to contact me at [phone] by phone or if you have questions or concerns regarding this new plan of care! Sincerely, Manish Bright, PT, ATC
--- NOTE | 2023-04-22 11:30 | HP.PTREVAL ---
Re-Evaluation Intro: JENNYFER SOUTH, It has been my pleasure to treat GILSON BHATIA over the last 31 visits for R TKA 12/28/22. Please see the progress note below for an update on the physical therapy plan of care! Subjective Subjective: I think i might be able to continue on my own Objective Objective/Function: R knee pain ranges from 0-2/10 R knee MMT: flex= 46, ext= 70 #F R knee ROM: 0-122 degrees Pt is I with gym routine Pt has achieved excellent ROM and strength at this time. Plan Plan Plan: Pt to continue I with gym routine and either follow up or discharge in one month Balance/Gait/Functional tests Balance/Special Test Scores WOMAC Total Score: 0 WOMAC Percentage: 100 Goals Goals Goal 1:: Decrease R knee pain x 50 % to aid with sleep Goal Time Frame: 4-6 Weeks Goal Progress: Goal Met Goal 2:: Increase R knee strength x 5-10#F with flexion and extension to aid with stair negotiation Goal Time Frame: 4-6 Weeks Goal Progress: Goal Met Goal 3:: Increase R knee ROM x 15 degrees to aid with return to work without limitations Goal Time Frame: 4-6 Weeks Goal Progress: Goal Met Goal 4:: I with HEP Goal Time Frame: 4-6 Weeks Goal Progress: Progressing Anticipated Interventions Anticipated Interventions Patient/Client Instruction: Educate patient on: Condition and Plan of Care For the Purpose of:: To improve self management Therapeutic Exercise to Include: Strength training, Endurance training, Balance training, Flexibilty training, Passive ROM, Active ROM and Dynamic Lumbar Stabilization For the Purpose of:: To decrease pain, To increase ROM and To improve muscle performance and motor function Cryotherapy (ice pack, ice massage): Yes For the Purpose of:: To decrease pain Re-Evaluation Ending Re-evaluation ending: Please do not hesitate to contact me at [phone] by phone or if you have questions or concerns regarding this new plan of care! Sincerely, Manish Bright, PT, ATC
== END 2023-05-27 19:00 | disposition home or self-care (01) ==
LOC: PT 10:00
PROVIDERS: PCP Internal Medicine
DX: M17.11 Unilateral primary osteoarthritis, right knee (principal); Z96.651 Presence of right artificial knee joint
CPT/HCPCS: 97016; 97110; 97140; 97161; 97164

== ENCOUNTER → 2023-08-20 | Outpatient (CLI) | payer MEDICARE, BC, SELFPAY ==
--- NOTE | 2023-08-20 08:18 | MRI_ITS ---
EXAM: MR ABDOMEN WITHOUT AND WITH INTRAVENOUS CONTRAST CLINICAL INDICATION: cirrhosis -- cirrhosis -- cirrhosis TECHNIQUE: Multiplanar and multisequence MR images of the abdomen without and with intravenous contrast. CONTRAST: IV 25 cc Clariscan COMPARISON: MR Abdomen dated 09/07/2022 FINDINGS: LOWER THORAX: Normal. No pleural effusion. LIVER: Nodular contour of the liver and the enlarged left and caudate lobes again seen consistent with underlying liver cirrhosis. No evidence of focal liver lesion. GALLBLADDER AND BILE DUCTS: Gallbladder is contracted consistent with a nonfasting state. No gallstones. No gallbladder distention or wall edema. No intra- or extrahepatic biliary ductal dilation. PANCREAS: Normal. No focal cystic or solid mass. SPLEEN: Spleen is enlarged measuring 17.4 cm in length. ADRENALS: Normal. No nodules. KIDNEYS AND URETERS: Normal. Normal renal size and position. No hydronephrosis. INTRAPERITONEAL SPACE: Normal. No ascites or other fluid collection. No free air. VASCULATURE: Distended umbilical vein and prominent varicose vessels within the left upper quadrant again noted consistent with changes of portal hypertension. Abdominal aorta is non-dilated. LYMPH NODES: No enlarged lymph nodes. MRI/MRI Abd WITH and W/O Contrast IMPRESSION: 1. Stable changes of liver cirrhosis and portal hypertension. 2. No evidence of liver mass. Electronically Signed: Jed Saavedra MD at 15:47 EDT ,
[2023-08-20 08:45] LABS: CREATININE FINGERSTICK < 1.0 mg/dL (0.70-1.30); EGFR FINGERSTICK > 60.0000 mL/min (>60)
== END | disposition home or self-care (01) ==
LOC: MRI 08:03
PROVIDERS: PCP Internal Medicine; Referring Provider Internal Medicine; Visit Provider Internal Medicine
DX: K74.60 Unspecified cirrhosis of liver (principal)
CPT/HCPCS: 74183; A9575; A4216

== ENCOUNTER 2024-01-30 08:02 | Observation (INO) | payer MEDICARE, BC, SELFPAY ==
[2024-01-30] VITALS (9 sets, daily range): BP systolic 125–164; BP diastolic 54–79; PULSE 71–97; RESP 16–22; TEMP 36.4–36.6; O2SAT 95–98; BMI 42.6; BMI 41.6
[2024-01-30] MEDS: 0.9% Normal Saline (500mL Bag) 500 ML 999 ML IV (08:15)
--- NOTE | 2024-01-30 08:16 | EKG12_ITS ---
Test Reason : SYNCOPE Blood Pressure : */* mmHG Vent. Rate : 73 BPM Atrial Rate : 73 BPM P-R Int : 182 ms QRS Dur : 102 ms QT Int : 402 ms P-R-T Axes : 32 26 52 degrees QTcB Int : 442 ms Normal sinus rhythm Normal ECG Confirmed by JOSÉ LUIS MENDOZA, JUANA ([id number]), associate editor SHIN DE LA CRUZ ([id number]) on 02/02/2024 6:07:30 AM Referred By: Confirmed By: JUANA ORDONEZ MD
--- NOTE | 2024-01-30 08:17 | EX.ED.DYSGE1 ---
HPI History of Present Illness Chief Complaint: Syncope Detail of Chief Complaint: Chest pain and syncope Informant: patient, spouse/S.O. and family Narrative Narrative: Patient brought to the emergency department via EMS from home with complaint of chest tightness and syncopal episode. Patient states that he had woken up at 5 AM. He was on the computer when he started having some chest tightness and discomfort. He got up to go to the bathroom and felt lightheaded and dizzy and sweaty. Family heard him fall. He was minimally responsive when they got to him and was pale and diaphoretic. He has never had an episode like this before. Currently denies any chest discomfort. He has no heart history and tells me he had a heart catheterization about 5 years ago that was unremarkable. Patient denies recent illness. Patient was nauseated and had some dry heaves after. [facility] Medical History (Updated 01/30/24 @ 10:[address] Pastora Lynn, DO) Atherosclerotic heart disease of [place] coronary artery without angina pectoris Thrombocytopenia Thyromegaly Hyperlipidemia Type 2 diabetes mellitus Obstructive sleep apnea Carpal tunnel syndrome Hearing loss Essential (primary) hypertension Bilateral carotid artery stenosis COPD (chronic obstructive pulmonary disease) Colon polyp GERD (gastroesophageal reflux disease) PUD (peptic ulcer disease) Fatty liver Cirrhosis Actinic keratosis Osteoarthritis Erectile dysfunction Obesity Home Medications ?Medication ?Instructions ?Recorded ?Last Taken ?Type amlodipine 5 mg tablet 5 mg PO BID 90 days 05/30/18 01/30/24 History meloxicam 15 mg tablet 15 mg PO QPM 05/30/19 01/29/24 History omeprazole 20 mg capsule,delayed 20 mg PO DAILY 05/30/19 01/30/24 History release tadalafil 5 mg tablet (Cialis) 5 mg PO DAILY 05/30/19 Unknown History ascorbic acid (vitamin C) 1,000 mg 1 g PO DAILY 01/01/22 01/29/24 History tablet hydrochlorothiazide 25 mg tablet 25 mg PO DAILY 90 days #90 tabs 01/01/22 01/30/24 History carvedilol 12.5 mg tablet (Coreg) 12.5 mg PO BID 12/17/22 01/30/24 History duloxetine 30 mg capsule,delayed 30 mg PO DAILY 12/17/22 01/30/24 History release losartan 50 mg tablet 50 mg PO QPM 12/17/22 01/29/24 History omega 2-uip-fhe-fish oil 300 1 cap PO DAILY 12/17/22 01/29/24 History mg-1,000 mg capsule (Fish Oil) Lactobacillus rhamnosus GG 10 1 cap PO DAILY 01/30/24 01/29/24 History billion cell capsule (Culturelle) acetaminophen 500 mg capsule 1,000 mg PO BID 01/30/24 01/30/24 History budesonide 180 mcg/actuation 1 inh inhalation QHS 01/30/24 01/29/24 History breath activated powder inhaler (Pulmicort Flexhaler) cholecalciferol (vitamin D3) 125 125 mcg PO DAILY 01/30/24 01/29/24 History mcg (5,000 unit) tablet (Vitamin D3) coenzyme Q10 100 mg capsule (Co 200 mg PO DAILY 01/30/24 01/30/24 History Q-10) potassium gluconate 595 mg (99 mg) 595 mg PO DAILY 01/30/24 01/30/24 History tablet psyllium husk 3.4 gram/5.4 gram 1 tbsp PO BID 01/30/24 01/30/24 History oral powder (Metamucil) tamsulosin 0.4 mg capsule 0.8 mg PO QHS 01/30/24 01/29/24 History zinc sulfate 50 mg zinc (220 mg) 50 mg PO DAILY 01/30/24 01/29/24 History capsule (Orazinc) Allergy/AdvReac Type Severity Reaction Status Date / Time Dffsrlh-BOR-VtW Reductase AdvReac myalgia Verified 05/01/23 18:59 Inhibitor (Dvllgim-Isa-Eke Reductase Inhibitor) Family History Brother Hypertension Mother Hypertension Hemochromatosis Diabetes Father Myocardial infarction form [place] age 74 Surgical History History of left heart catheterization (06/30/18) excision left olecranon bursae heel spur excision Amputation finger History of colonoscopy Social History Smoking Status: Former smoker caffeine: Yes Type: tea Number of servings: 6 ROS ROS ED Review of Systems ROS Unobtainable: other Constitutional Constitutional ED: Reports lethargy and sweats; Denies chills, fever(s) or weight loss Eyes Eyes: Denies blurry vision, change in vision or diplopia ENT ENT ED: Denies rhinorrhea or sore throat Cardiovascular Cardiovascular: Reports chest pain; Denies orthopnea or racing heartbeat Respiratory/Chest Respiratory/Chest: Denies cough, dyspnea, dyspnea on exertion, orthopnea or sputum Gastrointestinal Gastrointestinal: Reports nausea; Denies abdominal pain, diarrhea or vomiting Genitourinary Genitourinary ED: Denies dysuria, hematuria or urinary frequency Musculoskeletal Musculoskeletal: Denies arthralgias, back pain, myalgias or neck pain Integumentary Denies abscess, Abrasions or rash Neurologic Neurologic: Reports other Details: Syncopal episode ; Denies headache(s) or weakness Psychiatric Psychiatric: Denies anxiety, depression or suicidal thoughts Endocrine Endocrinology: Denies polydipsia, polyphagia or polyuria Hematologic/Lymphatic Hematologic/Lymphatic: Denies easy bleeding, easy bruising or lymphadenopathy Allergic/Immunologic Allergic/Immunologic ED: Denies mouth swelling, tongue swelling or urticaria EXAM Physical Exam Const Vital Signs: 01/30/24 08:02 01/30/24 08:10 01/30/24 08:16 Temperature 97.7 F L Temperature Source Oral Pulse Rate 71 Pulse Rate [Lying] Pulse Rate [Sitting (for 1 minute prior to obtaining)] Respiratory Rate 22 H Respiratory Effort Normal Non-Labored Respiratory Pattern Normal Blood Pressure 125/54 H Blood Pressure [Lying] Blood Pressure [Sitting (for 1 minute prior to obtaining)] Blood Pressure [Standing (for 1 minute prior to obtaining)] Blood Pressure Mean 77 Blood Pressure Mean [Lying] Blood Pressure Mean [Sitting (for 1 minute prior to obtaining)] Blood Pressure Mean [Standing (for 1 minute prior to obtaining)] Pulse Ox 95 Oxygen Delivery Method Room Air Room Air 01/30/24 09:54 Temperature Temperature Source Pulse Rate Pulse Rate [Lying] 75 Pulse Rate [Sitting (for 1 minute prior to obtaining)] 80 Respiratory Rate Respiratory Effort Respiratory Pattern Blood Pressure Blood Pressure [Lying] 145/70 H Blood Pressure [Sitting (for 1 minute prior to obtaining)] 140/79 H Blood Pressure [Standing (for 1 minute prior to obtaining)] 151/67 H Blood Pressure Mean Blood Pressure Mean [Lying] 95 Blood Pressure Mean [Sitting (for 1 minute prior to obtaining)] 99 Blood Pressure Mean [Standing (for 1 minute prior to obtaining)] 95 Pulse Ox Oxygen Delivery Method Positive well nourished and well developed General Appearance ED: well developed and NAD HEENT Reports TM's clear and moist mucous membranes normocephalic and atraumatic; Negative for trauma or tenderness Tympanic Membrane ED: Yes TM's clear Eyes PERRL and EOMs intact bilaterally General Eye ED: Negative for pale conjunctiva or scleral icterus Neck no lymphadenopathy, supple and no JVD General: Negative for tenderness Chest Wall inspection of chest normal and palpation of chest normal Chest: Negative for tenderness Resp normal respiratory effort and clear to auscultation bilaterally Effort and Inspection: Negative for respiratory distress or pain with movement Auscultation: Negative for rhonchi, wheezes or diminished lung sounds Cardio regular rate, regular rhythm, S1 normal heart sound, S2 normal heart sound and no murmurs Peripheral Pulses: pulses 2+ throughout GI normal to inspection, nondistended, normoactive bowel sounds, soft to palpation, non-tender, non-distended and no masses Back/Spine no CVA tenderness and no thoracic nor lumbar tenderness Extremity normal to inspection General Extremety ED: Negative for edema General Extremity: Negative for edema Neuro oriented x3, CN's II-XII intact bilaterally, no sensory deficits noted and gait normal Sensorium / Orientation: awake, alert, oriented to person, oriented to place and oriented to time Motor Exam: strength 5/5 throughout and strength abnormal Psych mental status grossly normal Skin no rashes or lesions noted and no wounds MDM MDM MDM Narrative Medical decision making narrative: Patient presents with chest pain and a syncopal episode that occurred this morning. EKG obtained arrival showed sinus rhythm with rate of 73 bpm with no acute ST segment changes. CBC with differential obtained for white count of 2.5 with hemoglobin 10.7 platelet count of 75. Chemistries unremarkable. BUN 17 and creatinine 0.85. Troponin was 5. 1 view chest x-ray unremarkable. Patient has a heart score of 6. Currently pain-free in his chest. I did review his heart cath from 5 years ago in 2019 that showed minimal luminal irregularities without significant disease. Patient has significant cardiac risk factors for heart disease. It is unclear if he was having a cardiac event versus possible vasovagal episode however his symptoms did begin while he was seated. Will discuss case with hospitalist to evaluate patient for admission for cardiac rule out. Lab Data Attestation: I reviewed the patient's lab results. Labs: Laboratory Results - last 24 hr 01/30/24 08:25 WBC 2.5 L RBC 4.00 L Hgb 10.7 L Hct 34.0 L MCV 85.0 MCH 26.8 L MCHC 31.5 L RDW Std Deviation 49.1 H RDW Coeff of Suzie 15.9 H Plt Count 75 L MPV 9.3 Immature Gran % (Auto) 0.400 Neut % (Auto) 77.7 H Lymph % (Auto) 13.1 L Schley % (Auto) 6.8 Eos % (Auto) 1.6 Baso % (Auto) 0.4 Absolute Neuts (auto) 2.0 Absolute Lymphs (auto) 0.33 L Nucleated RBC % 0 Diff Path Review May foll Platelet Estimate SLT DEC Sodium 139 Potassium 3.5 Chloride 105 Carbon Dioxide 28.0 Anion Gap 6 BUN 17 Creatinine 0.85 Estim Creat Clear Calc 118.16 Est GFR (MDRD) Af Amer 116 Est GFR (MDRD) Non-Af 96 BUN/Creatinine Ratio 20.0 Glucose 208 H Calcium 8.7 Troponin I High Sens 5 Radiography Diagnostic Testing: Clinical Impression(s) from Imaging Studies Chest X-Ray 01/30/24 08:40 IMPRESSION: Cardiac silhouette is enlarged with pulmonary vascular prominence. Electronically Signed: Lavell Macdonald DO at 9:06 EST Reading Location ID and State: [facility] / [place] Tel [phone], Service support , 1 view chest x-ray obtained interpreted by myself as no evidence of infiltrate or pneumothorax or acute disease process. Radiology felt there was enlargement of the cardiac silhouette and pulmonary vascular prominence. Discharge Plan Dx/Rx/DC Orders Clinical Impression: Chest pain, Syncope, Hypertension, History of hemochromatosis Disposition Disposition: Acute Care Hospital [facility]
[2024-01-30] MEDS: Aspirin 81 MG TAB.CHEW 324 MG PO (08:30)
[2024-01-30 08:36] LABS: Absolute Lymphocyte Count 0.33 X10^3/uL (0.83-4.51); Basophil# 0.01 X10^3/uL; Basophil% 0.4 % (0-1); Eosinophil# 0.04 X10^3/uL; Eosinophils% 1.6 % (0-5); Hemoglobin 10.7 g/dL (13.0-16.5); Lymphocyte # 0.33 X10^3/ul (0.83-4.51); Lymphocyte % 13.1 % (19-41); Mean Corp Hgb Conc 31.5 g/dL (32-36); Mean Corpuscular Hgb 26.8 pg (27.0-32.0); Mean Platelet Vol. 9.3 fl (6.2-12.0); Monocyte# 0.17 X10^3/uL; Monocyte% 6.8 % (0-10); NRBC Flagged by Analyzer 0 % (0-5); Neutrophil # 1.95 X10^3/uL (2.7-7.7); Neutrophil % 77.7 % (47-70); POSITIVE COUNT YES; POSITIVE DIFFERENTIAL YES; Platelet Count 75 K/mm3 (150-450); RBC Distribution Width CV 15.9 % (11.6-14.6); RBC Distribution Width SD 49.1 fl (35.1-43.9); White Blood Count 2.5 K/mm3 (4.4-11.0)
--- NOTE | 2024-01-30 08:40 | RAD_ITS ---
INDICATION: chest pain EXAMINATION/TECHNIQUE: X-RAY - XR Chest 1 View COMPARISON: May 01, 2023 FINDINGS: LINES/DEVICES: None. LUNGS: No consolidation, edema or effusion. No pneumothorax. MEDIASTINUM AND CARDIOVASCULAR STRUCTURES: Cardiac silhouette is enlarged with pulmonary vascular prominence. Central airways and mediastinal contour are unremarkable. BONES AND SOFT TISSUES: There is a right shoulder prosthesis. Old left rib fractures. RAD/Chest 1 View (Portable) IMPRESSION: Cardiac silhouette is enlarged with pulmonary vascular prominence. Electronically Signed: Lavell Macdonald DO at 9:06 EST Reading Location ID and State: [facility] / [place] Tel [phone], Service support ,
[2024-01-30 08:41] LABS: Differential Indicated SCAN CRITERIA MET
[2024-01-30 08:52] LABS: Anion Gap 6 (5-15); BUN 17 mg/dL (7-18); Calcium,Total 8.7 mg/dL (8.5-10.1); Chloride 105 mmol/L (98-107); Creatinine, Serum 0.85 mg/dL (0.70-1.30); EST Glomerular Filtration Rate 96 mL/min (>60); Est Glom Filt Rate - Afr Amer 116 mL/min (>60); Estimated Creatinine Clearance 118.16 ml/min; Glucose 208 mg/dL (74-106); Potassium 3.5 mmol/L (3.5-5.1); Sodium Level 139 mmol/L (136-145); Troponin-I HS (w/2H Reflex) 5 pg/mL (3.0-78.0)
[2024-01-30 09:13] LABS: Platelet Estimate SLT DEC (ADEQ)
[2024-01-30 10:31] LABS: Reflex Troponin-HS? (from REC) Y
--- NOTE | 2024-01-30 11:02 | HP.PCM.HOS_ITS ---
HPI - General General Date of Admission: 01/30/24 Date of Service: 01/30/24 Chief Complaint: syncope HPI Narrative GILSON BHATIA, is a 64 M who presents with a syncopal episode. Patient got up around 5 and had some couple Katharine cookies and this computer, developed some pain across his chest, got diaphoretic. Attempted to walk and had to go up a couple stairs and then his vision was very blurry so he could not really see it was in front of him and then fell into the wall and then fell to the floor. Patient was found by his where he was coming to at that moment and was noted to be grayish in appearance. Patient was brought to the hospital for evaluation and underwent a workup that has been unremarkable. Currently has no further symptoms. The hospitalist service was contacted for admission. Patient denies any prior history of this. [facility] Medical History Atherosclerotic heart disease of [place] coronary artery without angina pectoris Thrombocytopenia Thyromegaly Hyperlipidemia Type 2 diabetes mellitus Obstructive sleep apnea Carpal tunnel syndrome Hearing loss Essential (primary) hypertension Bilateral carotid artery stenosis COPD (chronic obstructive pulmonary disease) Colon polyp GERD (gastroesophageal reflux disease) PUD (peptic ulcer disease) Fatty liver Cirrhosis Actinic keratosis Osteoarthritis Erectile dysfunction Obesity Home Medications ?Medication ?Instructions ?Recorded ?Last Taken ?Type amlodipine 5 mg tablet 5 mg PO BID 90 days 05/30/18 01/30/24 History meloxicam 15 mg tablet 15 mg PO QPM 05/30/19 01/29/24 History omeprazole 20 mg capsule,delayed 20 mg PO DAILY 05/30/19 01/30/24 History release tadalafil 5 mg tablet (Cialis) 5 mg PO DAILY 05/30/19 Unknown History ascorbic acid (vitamin C) 1,000 mg 1 g PO DAILY 01/01/22 01/29/24 History tablet hydrochlorothiazide 25 mg tablet 25 mg PO DAILY 90 days #90 tabs 01/01/22 01/30/24 History carvedilol 12.5 mg tablet (Coreg) 12.5 mg PO BID 12/17/22 01/30/24 History duloxetine 30 mg capsule,delayed 30 mg PO DAILY 12/17/22 01/30/24 History release losartan 50 mg tablet 50 mg PO QPM 12/17/22 01/29/24 History omega 6-odf-ksf-fish oil 300 1 cap PO DAILY 12/17/22 01/29/24 History mg-1,000 mg capsule (Fish Oil) Lactobacillus rhamnosus GG 10 1 cap PO DAILY 01/30/24 01/29/24 History billion cell capsule (Culturelle) acetaminophen 500 mg capsule 1,000 mg PO BID 01/30/24 01/30/24 History budesonide 180 mcg/actuation 1 inh inhalation QHS 01/30/24 01/29/24 History breath activated powder inhaler (Pulmicort Flexhaler) cholecalciferol (vitamin D3) 125 125 mcg PO DAILY 01/30/24 01/29/24 History mcg (5,000 unit) tablet (Vitamin D3) coenzyme Q10 100 mg capsule (Co 200 mg PO DAILY 01/30/24 01/30/24 History Q-10) potassium gluconate 595 mg (99 mg) 595 mg PO DAILY 01/30/24 01/30/24 History tablet psyllium husk 3.4 gram/5.4 gram 1 tbsp PO BID 01/30/24 01/30/24 History oral powder (Metamucil) tamsulosin 0.4 mg capsule 0.8 mg PO QHS 01/30/24 01/29/24 History zinc sulfate 50 mg zinc (220 mg) 50 mg PO DAILY 01/30/24 01/29/24 History capsule (Orazinc) Allergy/AdvReac Type Severity Reaction Status Date / Time Jldvuan-FWN-EvP Reductase AdvReac myalgia Verified 05/01/23 18:59 Inhibitor (Gsilzcj-Rqm-Gzw Reductase Inhibitor) Family History Brother Hypertension Mother Hypertension Hemochromatosis Diabetes Father [place] infarction form [place] age 74 Surgical History History of left heart catheterization (06/30/18) excision left olecranon bursae heel spur excision Amputation finger History of colonoscopy Social History Smoking Status: Former smoker caffeine: Yes Type: tea Number of servings: 6 ROS ROS Narrative Chronic lower extremity edema which he wears compression stockings for. No change with that recently. All review of systems were negative except as mentioned above in the history of present illness and the other review of systems. Vital Signs Vital Signs Vital Signs: 01/30/24 08:02 01/30/24 08:10 01/30/24 08:16 Temperature 36.5 C L Temperature Source Oral Pulse Rate 71 Pulse Rate [Lying] Pulse Rate [Sitting (for 1 minute prior to obtaining)] Respiratory Rate 22 H Respiratory Effort Normal Non-Labored Respiratory Pattern Normal Blood Pressure 125/54 H Blood Pressure [Lying] Blood Pressure [Sitting (for 1 minute prior to obtaining)] Blood Pressure [Standing (for 1 minute prior to obtaining)] Blood Pressure Mean 77 Blood Pressure Mean [Lying] Blood Pressure Mean [Sitting (for 1 minute prior to obtaining)] Blood Pressure Mean [Standing (for 1 minute prior to obtaining)] Pulse Ox 95 Oxygen Delivery Method Room Air Room Air 01/30/24 09:54 01/30/24 10:37 01/30/24 10:39 Temperature 36.5 C L 36.5 C L Temperature Source Oral Pulse Rate 77 97 Pulse Rate [Lying] 75 Pulse Rate [Sitting (for 1 minute prior to obtaining)] 80 Respiratory Rate 18 18 Respiratory Effort Respiratory Pattern Blood Pressure 139/62 H 139/62 H Blood Pressure [Lying] 145/70 H Blood Pressure [Sitting (for 1 minute prior to obtaining)] 140/79 H Blood Pressure [Standing (for 1 minute prior to obtaining)] 151/67 H Blood Pressure Mean 87 87 Blood Pressure Mean [Lying] 95 Blood Pressure Mean [Sitting (for 1 minute prior to obtaining)] 99 Blood Pressure Mean [Standing (for 1 minute prior to obtaining)] 95 Pulse Ox 97 97 Oxygen Delivery Method Room Air Weight Weight: 134.808 kg Body Mass Index (BMI) 42.6 Physical Exam Const alert and no apparent distress HEENT normocephalic and head/scalp atraumatic Eyes Eyes Narrative: No icterus. Glasses. Resp normal respiratory effort, no retractions, no use of accessory muscles and clear to auscultation bilaterally Cardio regular rate, regular rhythm, S1 normal heart sound and S2 normal heart sound GI normal to inspection, nondistended, normoactive bowel sounds, soft to palpation, non-tender and non-distended Extremity normal to inspection Extremity Narrative: Lower extremity edema, nonpitting. Neuro moves all extremities and no focal motor deficits Sensorium / Orientation: awake and alert Psych affect normal Results Lab / Micro Data 01/30/24 08:25 01/30/24 08:25 Labs: Laboratory Results - last 24 hr 01/30/24 08:25: WBC 2.5 L, RBC 4.00 L, Hgb 10.7 L, Hct 34.0 L, MCV 85.0, MCH 26.8 L, MCHC 31.5 L, RDW Std Deviation 49.1 H, RDW Coeff of Suzie 15.9 H, Plt Count 75 L, MPV 9.3, Immature Gran % (Auto) 0.400, Neut % (Auto) 77.7 H, Lymph % (Auto) 13.1 L, [place] % (Auto) 6.8, Eos % (Auto) 1.6, Baso % (Auto) 0.4, Absolute Neuts (auto) 2.0, Absolute Lymphs (auto) 0.33 L, Nucleated RBC % 0, Diff Path Review June, Platelet Estimate SLT DEC, Sodium 139, Potassium 3.5, Chloride 105, Carbon Dioxide 28.0, Anion Gap 6, BUN 17, Creatinine 0.85, Estim Creat Clear Calc 118.16, Est GFR (MDRD) Af Amer 116, Est GFR (MDRD) Non-Af 96, BUN/Creatinine Ratio 20.0, Glucose 208 H, Calcium 8.7, Troponin I High Sens 5 Imaging Radiology Impression Chest X-Ray 01/30/24 08:40 IMPRESSION: Cardiac silhouette is enlarged with pulmonary vascular prominence. Electronically Signed: Lavell Macdonald DO at 9:06 EST Reading Location ID and State: [facility] / [place] Tel [phone], Service support , Assessment & Plan Assessment/Plan (1) Syncope: PLAN: Vasovagal given his events. Unclear why he may have had a single but does not seem consistent with a cardiac arrhythmia. Plan is to check an echocardiogram, monitor him on telemetry recheck troponin. Patient advised that echocardiogram will not be able form until the . Told patient I think this is more of a benign process though he may have felt very sick when this happened. When he first walked in the room he seemed dissatisfied that I was talking about being admitted. Told that we can do these test but I felt also and I told him is such that it would be reasonable for him to go home PSO shows to do so as I feel that this is more benign process. He agreed to staying and having that evaluation performed. PLAN: Plan Chronic conditions * Hemochromatosis: Patient is unsure if he has hemochromatosis but his mother has been diagnosed with it and follow-up with Dr. Dasilva as outpatient. Patient has periodic phlebotomies. His current hemoglobin is 10.7. His last phlebotomy was past Wednesday. * Cirrhosis: Likely secondary to hemochromatosis. Follow-up with GI as outpatient * Thrombocytopenia: Likely due to hepatosplenomegaly. Chronic process appears stable overall. Last fill of the labs we have is from 2021. VTE prophylaxis: Low risk given current observation status not indicated. Charges/Coding Visit Charges Inpatient E&M: 33012 Init Hosp L2
[2024-01-30 11:07] LABS: Troponin-I HS 4 pg/mL (3.0-78.0)
--- NOTE | 2024-01-30 12:16 | ECHOCS_ITS ---
Reason For Study: SYNCOPE Procedure This was a 2D Doppler, Color Flow transthoracic echocardiogram. The study was technically difficult. Contrast injection was performed. Exam performed portable in patient room. Left Ventricle Normal LV size. Left ventricular systolic function is normal. The left ventricular ejection fraction is 65 %. No regional wall motion abnormalities noted. Right Ventricle Normal RV size. Normal systolic function. Atria Normal left atrium. Normal right atrium. Mitral Valve Normal mitral valve. Tricuspid Valve Normal tricuspid valve. Aortic Valve The aortic valve is not well visualized. Pulmonic Valve Normal pulmonic valve. Great Vessels Normal aortic root. The pulmonary artery is normal size. Inferior vena cava collapse with respiration. Pericardium/Pleural No pericardial effusion. Medication Diluted definity 2ml given slow IV push to enhance endocardial definition. MMode/2D Measurements & Calculations LVIDd: 5.7 cm IVSd: 1.2 cm LVOT diam: 2.3 cm LVIDs: 3.1 cm LVPWd: 0.89 cm RVDd: 5.0 cm FS: 45.2 % LVOT area: 4.3 cm2 asc Aorta Diam: 3.4 cm LAV(MOD-bp): 81.7 ml LVAd ap4: 41.4 cm2 LAV(MOD-bp) Indexed: 33.4 ml/m2 LVLd ap4: 9.6 cm LAV(MOD-sp2): 82.6 ml EDV(MOD-sp4): 145.7 ml LAV(MOD-sp4): 72.5 ml EDV(sp4-el): 151.0 ml LVAs ap4: 23.1 cm2 LVLs ap4: 8.1 cm ESV(MOD-sp4): 53.2 ml ESV(sp4-el): 55.6 ml EF(MOD-sp4): 63.5 % EF(sp4-el): 63.2 % LVAd ap2: 42.4 cm2 SV(MOD-sp4): 92.5 ml SV(MOD-sp2): 77.9 ml LVLd ap2: 10.4 cm SI(MOD-sp4): 37.9 ml/m2 SI(MOD-sp2): 31.9 ml/m2 EDV(MOD-sp2): 139.1 ml EDV(sp2-el): 146.4 ml LVAs ap2: 25.9 cm2 LVLs ap2: 8.9 cm ESV(MOD-sp2): 61.2 ml ESV(sp2-el): 63.7 ml EF(MOD-sp2): 56.0 % SV(sp4-el): 95.4 ml Ao sinus diam: 3.[address] Junction: 3.0 cm LA dimension(2D): 4.7 cm LA A4 area: 22.4 cm2 RA A4 area: 18.3 cm2 TAPSE: 2.9 cm Time Measurements MV dec time: 0.22 sec Doppler Measurements & Calculations MV E max candelario: 82.3 cm/sec Lat Peak E' Candelario: 12.3 cm/sec Med Peak E' Candelario: 10.3 cm/sec MV A max candelario: 82.3 cm/sec E/E' lat: 6.7 E/E' med: 8.0 MV E/A: 1.0 MV dec slope: 366.1 cm/sec2 Ao V2 max: 185.9 cm/sec LV V1 max: 130.6 cm/sec Ao max P.8 mmHg LV V1 max P.8 mmHg Ao V2 mean: 141.3 cm/sec LV V1 mean P.1 mmHg Ao mean P.7 mmHg LV V1 mean: 96.2 cm/sec Ao V2 VTI: 38.7 cm LV V1 VTI: 28.8 cm AV (velocity ratio): 0.74 MAGALY(I,D): 3.2 cm2 MAGALY(V,D): 3.0 cm2 SV(LVOT): 124.7 ml PA V2 max: 139.1 cm/sec TR max candelario: 281.3 cm/sec TR max P.7 mmHg ECHO/Echo Complete W/ Contrast Interpretation Summary Normal LV size. Left ventricular systolic function is normal. The left ventricular ejection fraction is 65 %. Contrast injection was performed. Ordering Physician: Phillip Villarreal Referring Physician: Marybel Garcias D.O. Performed By: Kiha Guzman RDCS
[2024-01-30 15:10] LABS: Troponin-I HS 5 pg/mL (3.0-78.0)
[2024-01-30 17:25] LABS: Magnesium 1.8 mg/dL (1.6-2.6)
[2024-01-30] MEDS: Tamsulosin HCl 0.4 MG Capsule 0.8 MG PO (21:28)
[2024-01-30] MEDS: Meloxicam 15 MG Tablet PO (21:29)
[2024-01-30] MEDS: Losartan Potassium 50 MG Tablet PO (21:29)
[2024-01-30] MEDS: amLODIPine 5 MG Tablet PO (21:29)
[2024-01-30] MEDS: Carvedilol 12.5 MG Tablet PO (21:29)
[2024-01-30] MEDS: Budesonide Respules 0.5 MG/2 ML AMPUL.NEB. INHALATION (22:35)
[2024-01-31 05:20] VITALS: BP 142/63; PULSE 79; RESP 18; TEMP 36.6; O2SAT 94
[2024-01-31 07:00] VITALS: PULSE 77
--- NOTE | 2024-01-31 08:05 | PCM.PN.HOSP ---
Reason for Visit Reason for Visit: Diagnoses Syncope and collapse (01/30/24) Subjective Subjective Feels well. No further events. Objective Data Objective Data Vital Signs: Vital Signs Temp Pulse Resp BP Pulse Ox O2 Del Method 36.6 C 79 18 142/63 H 94 Room Air 01/31/24 05:20 01/31/24 05:20 01/31/24 05:20 01/31/24 05:20 01/31/24 05:20 01/31/24 05:20 Oxygen Delivery Method Room Air Weight: 131.598 kg Body Mass Index (BMI) 41.6 Intake & Output: Intake and Output for Last 24 Hours 01/29/24 01/30/24 01/31/24 23:59 23:59 23:59 Intake Total 1200 / 1200 Balance 1200 / 1200 Lab / Micro Data 01/30/24 08:25 01/30/24 08:25 Labs: Laboratory Results - last 24 hr 01/30/24 08:25: WBC 2.5 L, RBC 4.00 L, Hgb 10.7 L, Hct 34.0 L, MCV 85.0, MCH 26.8 L, MCHC 31.5 L, RDW Std Deviation 49.1 H, RDW Coeff of Suzie 15.9 H, Plt Count 75 L, MPV 9.3, Immature Gran % (Auto) 0.400, Neut % (Auto) 77.7 H, Lymph % (Auto) 13.1 L, [place] % (Auto) 6.8, Eos % (Auto) 1.6, Baso % (Auto) 0.4, Absolute Neuts (auto) 2.0, Absolute Lymphs (auto) 0.33 L, Nucleated RBC % 0, Diff Path Review June foll, Platelet Estimate SLT DEC, Sodium 139, Potassium 3.5, Chloride 105, Carbon Dioxide 28.0, Anion Gap 6, BUN 17, Creatinine 0.85, Estim Creat Clear Calc 118.16, Est GFR (MDRD) Af Amer 116, Est GFR (MDRD) Non-Af 96, BUN/Creatinine Ratio 20.0, Glucose 208 H, Calcium 8.7, Troponin I High Sens 5 01/30/24 10:35: Troponin I High Sens 4 01/30/24 14:30: Magnesium 1.8, Troponin I High Sens 5 Radiography Diagnostic Testing: Radiology Impression Chest X-Ray 01/30/24 08:40 IMPRESSION: Cardiac silhouette is enlarged with pulmonary vascular prominence. Electronically Signed: Lavell Macdonald at 9:06 EST Reading Location ID and State: [facility] / [place] Tel [phone], Service support , Physical Exam Const alert and no apparent distress HEENT head/scalp atraumatic and moist oral mucous membranes Resp normal respiratory effort and no retractions Cardio regular rate, regular rhythm, S1 normal heart sound and S2 normal heart sound GI normal to inspection, nondistended, normoactive bowel sounds and soft to palpation Extremity normal to inspection and full ROM Assessment & Plan Assessment/Plan (1) Syncope: PLAN: Vasovagal given his events. Unclear why he may have had a single but does not seem consistent with a cardiac arrhythmia. Patient with some PVCs but nothing consecutive. Echo ordered. Still that this is vasovagal unclear the etiology but his workup thus far has been unremarkable. PLAN: Plan Chronic conditions Hemochromatosis: Patient is unsure if he has hemochromatosis but his mother has been diagnosed with it and follow-up with Dr. Dasilva as outpatient. Patient has periodic phlebotomies. His current hemoglobin is 10.7. His last phlebotomy was past Wednesday. Cirrhosis: Likely secondary to hemochromatosis. Follow-up with GI as outpatient Thrombocytopenia: Likely due to hepatosplenomegaly. Chronic process appears stable overall. Last fill of the labs we have is from 2021. VTE prophylaxis: Low risk given current observation status not indicated. Charges/Coding Visit Charges Inpatient E&M: 16456 Subs Hosp L2
[2024-01-31 08:17] VITALS: BP 157/66; PULSE 77; RESP 16; TEMP 36.3; O2SAT 91
[2024-01-31] MEDS: amLODIPine 5 MG Tablet PO (09:49)
[2024-01-31] MEDS: Carvedilol 12.5 MG Tablet PO (09:49)
[2024-01-31] MEDS: DULoxetine Hcl 30 MG Capsule PO (09:49)
[2024-01-31] MEDS: Pantoprazole Sodium 20 MG Tablet PO (09:49)
[2024-01-31] MEDS: hydroCHLOROthiazide 25 MG Tablet PO (09:49)
[2024-01-31 10:59] VITALS: PULSE 74
--- NOTE | 2024-01-31 11:35 | CASEMGMT ---
Met with patient to complete MENESES form. MENESES form explained to patient who voiced understanding and signed form. Original form placed in pt?s chart and copy provided to patient. Valarie Izaguirre, Discharge Planning Asst
[2024-01-31 13:35] VITALS: BP 145/64; PULSE 81; RESP 20; TEMP 36.4; O2SAT 97
--- NOTE | 2024-01-31 14:14 | DS.PCM_ITS ---
Providers Date of Admission: 01/30/24 Primary Care Physician: Dr. Marybel Garcias DO Reason For Visit: SYNCOPE Diagnosis Discharge Diagnosis (1) Syncope: Status: Acute Code(s): R55 - Syncope and collapse Plan: Vasovagal given his events. Unclear why he may have had a single but does not seem consistent with a cardiac arrhythmia. Patient with some PVCs but nothing consecutive. Echo ordered. Still that this is vasovagal unclear the etiology but his workup thus far has been unremarkable. Plan Chronic conditions * Hemochromatosis: Patient is unsure if he has hemochromatosis but his mother has been diagnosed with it and follow-up with Dr. Dasilva as outpatient. Patient has periodic phlebotomies. His current hemoglobin is 10.7. His last phlebotomy was past Wednesday. * Cirrhosis: Likely secondary to hemochromatosis. Follow-up with GI as outpatient * Thrombocytopenia: Likely due to hepatosplenomegaly. Chronic process appears stable overall. Last fill of the labs we have is from 2021. VTE prophylaxis: Low risk given current observation status not indicated. Medications at Discharge Home Medications amlodipine 5 mg tablet 5 mg PO BID 90 days 05/30/18 meloxicam 15 mg tablet 15 mg PO QPM 05/30/19 omeprazole 20 mg capsule,delayed release 20 mg PO DAILY 05/30/19 tadalafil 5 mg tablet (Cialis) 5 mg PO DAILY 05/30/19 ascorbic acid (vitamin C) 1,000 mg tablet 1 g PO DAILY 01/01/22 hydrochlorothiazide 25 mg tablet 25 mg PO DAILY 90 days #90 tabs 01/01/22 carvedilol 12.5 mg tablet (Coreg) 12.5 mg PO BID 12/17/22 duloxetine 30 mg capsule,delayed release 30 mg PO DAILY 12/17/22 losartan 50 mg tablet 50 mg PO QPM 12/17/22 omega 7-wsz-fwt-fish oil 300 mg-1,000 mg capsule (Fish Oil) 1 cap PO DAILY 12/17/22 Lactobacillus rhamnosus GG 10 billion cell capsule (Culturelle) 1 cap PO DAILY 01/30/24 acetaminophen 500 mg capsule 1,000 mg PO BID 01/30/24 budesonide 180 mcg/actuation breath activated powder inhaler (Pulmicort Flexhaler) 1 inh inhalation QHS 01/30/24 cholecalciferol (vitamin D3) 125 mcg (5,000 unit) tablet (Vitamin D3) 125 mcg PO DAILY 01/30/24 coenzyme Q10 100 mg capsule (Co Q-10) 200 mg PO DAILY 01/30/24 potassium gluconate 595 mg (99 mg) tablet 595 mg PO DAILY 01/30/24 psyllium husk 3.4 gram/5.4 gram oral powder (Metamucil) 1 tbsp PO BID 01/30/24 tamsulosin 0.4 mg capsule 0.8 mg PO QHS 01/30/24 zinc sulfate 50 mg zinc (220 mg) capsule (Orazinc) 50 mg PO DAILY 01/30/24 Hospital Course Procedures 2-D Echocardiogram Summary of Care Provided Hospital Course: Patient with syncopal episode. Workup was unremarkable. Patient had echocardiogram suspect his syncope was vasovagal but from unclear source. Patient started feeling that way was sitting down and he got up and then walked around 50 feet which and then he collapsed. Advised him in the future if he does have further events where he is feeling unwell to get himself to the ground and try to keep his legs elevated. Weight / BMI Weight Weight: 131.598 kg Body Mass Index (BMI) 41.6 ABG / Lab / Microbiology Data 01/30/24 08:25 01/30/24 08:25 Laboratory: Laboratory Results - last 24 hr 01/30/24 14:30: Magnesium 1.8, Troponin I High Sens 5 Radiography Diagnostic Testing: Radiology Impression Echocardiogram 01/30/24 12:16 Interpretation Summary Normal LV size. Left ventricular systolic function is normal. The left ventricular ejection fraction is 65 %. Contrast injection was performed. Ordering Physician: Phillip Villarreal Referring Physician: Marybel Garcias D.O. Performed By: Kiah Guzman RDCS D/C Instructions Discharge Diet: No restrictions DC O2, CPAP, BIPAP Needs Additional Home O2 Discharge instructions: No DC home with Oxygen: No Meaningful Use Info Meaningful Use Meaningful Use Diagnoses (Choose all that apply): None applicable Ischemic Stroke Statin Dosing Therapy Reference: STATIN DOSE THERAPY REFERENCE: * Patients > 75 years receive moderate or high dose statin therapy. * Patients 75 years or YOUNGER should receive HIGH intensity statin dose unless contraindicated. You will be required to document reason for non-treatment if statin daily dose does not meet guidelines. HIGH DOSE STATIN THERAPY DAILY Atorvastatin > than or = to 40 mg Rosuvastatin > than or = to 20 mg Amlodipine + Atorvastatin > than or = to 2.5/40 mg Ezetimibe + Simvastatin 10/80 mg Simvastatin 80mg Discharge Plan Admission Admit Date/Time: 01/30/24 10:58 Primary Reason for Your Visit: syncope Attending Provider: Phillip Villarreal Primary Care Provider: Marybel Garcias Instructions Additional Instructions / Restrictions: You had a syncopal episode (fainting), from unclear reason. Workup during hospital was unremarkable. No additional testing is necessary at this time. If you feel like this in the future, please sit or lie down if that is possible. Discharge Orders/Prescriptions Prescriptions: Continued amlodipine 5 mg tablet 5 mg PO BID 90 Days hydrochlorothiazide 25 mg tablet 25 mg PO DAILY 90 Days Qty: 90 meloxicam 15 mg tablet 15 mg PO QPM Patient Comments: TAKE 1 TABLET BY MOUTH ONCE DAILY NEEDED WITH FOOD omeprazole 20 mg capsule,delayed release(DR/EC) 20 mg PO DAILY tadalafil [Cialis] 5 mg tablet 5 mg PO DAILY ascorbic acid (vitamin C) 1,000 mg tablet 1 g PO DAILY carvedilol [Coreg] 12.5 mg tablet 12.5 mg PO BID Rx Instructions: must administer with a meal/food duloxetine 30 mg capsule,delayed release(DR/EC) 30 mg PO DAILY omega 7-sma-efh-fish oil [Fish Oil] 300-1,000 mg capsule 1 cap PO DAILY losartan 50 mg tablet 50 mg PO QPM tamsulosin 0.4 mg capsule 0.8 mg PO QHS potassium gluconate 595 mg (99 mg) tablet 595 mg PO DAILY Pulmicort Flexhaler 180 mcg/actuation aerosol powdr breath activated 1 inh inhalation QHS coenzyme Q10 [Co Q-10] 100 mg capsule 200 mg PO DAILY cholecalciferol (vitamin D3) [Vitamin D3] 125 mcg (5,000 unit) tablet 125 mcg PO DAILY zinc sulfate [Orazinc] 50 mg zinc (220 mg) capsule 50 mg PO DAILY Culturelle 10 billion cell capsule 1 cap PO DAILY acetaminophen 500 mg capsule 1,000 mg PO BID Metamucil 3.4 gram/5.4 gram powder 1 tbsp PO BID Rx Instructions: mix into at least 8 oz of water or juice before administering Referrals / Follow Up: Fast,Marybel, DO [Primary Care Provider] - Within 2 Weeks Disposition Disposition (needs filled in before D/C Order can be placed): Home, Self Care Charges/Coding Visit Charges Inpatient E&M: 45916 Disch Hosp
[2024-01-31 14:17] VITALS: PULSE 87
--- NOTE | 2024-01-31 14:41 | CASEMGMT ---
Patient has order for discharge. RN CM in to discuss needs at discharge, at bedside. Patient denies needs or help at discharge. Patient had no further questions or concerns.
--- NOTE | 2024-01-31 14:55 | PHA.DC_ITS ---
Pharmacy [place] Med Reconciliation Pharmacy Service has performed discharge medication reconciliation for this patient. The patient's discharge medication list was reviewed for discrepancies and discrepancies were resolved. Medications at Discharge Home Medications amlodipine 5 mg tablet 5 mg PO BID 90 days 05/30/18 meloxicam 15 mg tablet 15 mg PO QPM 05/30/19 omeprazole 20 mg capsule,delayed release 20 mg PO DAILY 05/30/19 tadalafil 5 mg tablet (Cialis) 5 mg PO DAILY 05/30/19 ascorbic acid (vitamin C) 1,000 mg tablet 1 g PO DAILY 01/01/22 hydrochlorothiazide 25 mg tablet 25 mg PO DAILY 90 days #90 tabs 01/01/22 carvedilol 12.5 mg tablet (Coreg) 12.5 mg PO BID 12/17/22 duloxetine 30 mg capsule,delayed release 30 mg PO DAILY 12/17/22 losartan 50 mg tablet 50 mg PO QPM 12/17/22 omega 4-hrn-fan-fish oil 300 mg-1,000 mg capsule (Fish Oil) 1 cap PO DAILY 12/17/22 Lactobacillus rhamnosus GG 10 billion cell capsule (Culturelle) 1 cap PO DAILY 01/30/24 acetaminophen 500 mg capsule 1,000 mg PO BID 01/30/24 budesonide 180 mcg/actuation breath activated powder inhaler (Pulmicort Fl exhaler) 1 inh inhalation QHS 01/30/24 cholecalciferol (vitamin D3) 125 mcg (5,000 unit) tablet (Vitamin D3) 125 mcg PO DAILY 01/30/24 coenzyme Q10 100 mg capsule (Co Q-10) 200 mg PO DAILY 01/30/24 potassium gluconate 595 mg (99 mg) tablet 595 mg PO DAILY 01/30/24 psyllium husk 3.4 gram/5.4 gram oral powder (Metamucil) 1 tbsp PO BID 01/30/24 tamsulosin 0.4 mg capsule 0.8 mg PO QHS 01/30/24 zinc sulfate 50 mg zinc (220 mg) capsule (Orazinc) 50 mg PO DAILY 01/30/24
[2024-02-01 15:16] LABS: Pathologist Review Reviewed
== END 2024-01-31 14:17 | disposition home or self-care (01) ==
LOC: ED 10:18 → PCU 11:04
PROVIDERS: Emergency Provider Emergency Medicine; PCP Internal Medicine
DX: R55 Syncope and collapse (principal); K74.60 Unspecified cirrhosis of liver; J44.9 Chronic obstructive pulmonary disease, unspecified; E11.9 Type 2 diabetes mellitus without complications; I10 Essential (primary) hypertension; E78.5 Hyperlipidemia, unspecified; I25.10 Atherosclerotic heart disease of native coronary artery without angina pectoris; R07.89 Other chest pain; Z87.891 Personal history of nicotine dependence; R11.2 Nausea with vomiting, unspecified; G47.33 Obstructive sleep apnea (adult) (pediatric); K21.9 Gastro-esophageal reflux disease without esophagitis; Z79.899 Other long term (current) drug therapy; E83.119 Hemochromatosis, unspecified; D69.6 Thrombocytopenia, unspecified
CPT/HCPCS: 36415; 71045; 80048; 83735; 84484; 85025; 93005; 93306; 94640; 96360; 99221; 99285; Q9957; A4216; C8929; G0378

== ENCOUNTER → 2024-02-24 | Outpatient (CLI) | payer MEDICARE, BC, SELFPAY ==
--- NOTE | 2024-02-24 06:57 | CDU_ITS ---
Reason For Study: Carotid stenosis Rt. Velocities/BP Lt. Velocities/BP Prox CCA 88.3/13.5 cm/sec. Prox CCA 119.3/15.2 cm/sec. Mid CCA 93.8/13.5 cm/sec. Mid CCA 101/11.5 cm/sec. Dist CCA 94.9/14.6 cm/sec. Dist CCA 75.1/11.3 cm/sec. Prox ICA 76.5/13.9 cm/sec. Prox ICA 85/18.2 cm/sec. Mid ICA 72.8/19.5 cm/sec. Mid ICA 95.2/19.1 cm/sec. Dist ICA 87.6/22.5 cm/sec. Dist ICA 115.9/27 cm/sec. Rt. ICA/CCA = 0.93. Lt. ICA/CCA = 1.15. Prox ECA 112.1/17.6 cm/sec. Prox ECA 146.7/13.3 cm/sec. Rt. Vert. 47.6/5.8 cm/sec. Lt. Vert. 60.7/11.6 cm/sec. Right Extracranial There is intimal thickening but no significant atherosclerotic plaque noted in the right common carotid artery. There is intimal thickening but no significant atherosclerotic plaque noted in the right internal carotid artery. There is intimal thickening but no significant atherosclerotic plaque noted in the right external carotid artery. Antegrade flow is noted in the right vertebral artery. Left Extracranial There is intimal thickening but no significant atherosclerotic plaque noted in the left common carotid artery. There is heterogeneous, irregular atherosclerotic plaque noted in the left internal carotid artery. The left internal carotid artery is very tortuous. There is intimal thickening but no significant atherosclerotic plaque noted in the left external carotid artery. Antegrade flow is noted in the left vertebral artery. Procedure Carotid Duplex 72431. This is a Carotid Duplex examination using B-mode, color flow and specral Doppler. Exam performed in department. VL/Carotid Duplex Ultrasound Interpretation Summary Normal right extracranial internal carotid. Mild (<50%) stenosis left extracranial internal carotid. Patent and antegrade vertebrals bilaterally. Ordering Physician: Marybel Garcias Referring Physician: Marybel Garcias Performed By: Krupa Kurtz RVT
--- NOTE | 2024-02-25 16:05 | STRESSREP ---
Stress Test Report Date: 02/24/2024 Procedure: Exercise tolerance test/imaging study Indications: Chest pain, syncope Consent: Per the patient Procedure: The patient exercised on a Enrique protocol for 5 minutes and 15 seconds achieving a peak heart rate of 142 bpm (92% predicted maximal heart rate) with a peak blood pressure 210/64 mmHg and a peak MET capacity of 7 METs. The baseline ECG demonstrated normal sinus rhythm, occasional PVCs. The peak exercise ECG demonstrated no significant ischemic changes. EKG during recovery revealed no significant ischemic changes [There were no cardiac dysrhythmias pretest, during exercise, or recovery]. The functional capacity was considered normal for age. There was [no complaint of chest discomfort during exercise or recovery]. The examination was discontinued secondary to dyspnea. Impression: 1. Technically adequate (percent predicted maximal heart rate greater than 85%) exercise tolerance test 2. Stress test is negative for exercise-induced EKG changes of ischemia 3. The test test is negative for exercise-induced chest pain 4. Functional capacity is normal for age 5. Nuclear images pending Myocardial perfusion imaging study: Technique: The patient was injected with 14.2 mCi of technetium 99m Cardiolite and subsequently rest SPECT Cardiolite nuclear imaging was obtained in the horizontal long, vertical long, and short axis views. The patient exercised on a Enrique protocol. Please see above for details. The patient was injected with 44.7 mCi of technetium 99m Cardiolite and subsequently stress SPECT Cardiolite nuclear imaging was obtained in the horizontal long, vertical long, and short axis views. A gated Cardiolite study at peak stress was obtained. Interpretation: Rest and stress SPECT Cardiolite nuclear imaging status post realignment, normalization, and attenuation correction, demonstrates no evidence of significant ischemia or infarction. The gated Cardiolite study demonstrates no significant regional wall motion abnormalities. The reported LVEF is 67%. Impression: 1. There is no evidence of significant ischemia or infarction. 2. The gated Cardiolite study reports an LVEF of 67%. This note was generated with [employer] software. It may contain incorrect words, spelling, and punctuation that were not noted in checking the note before signing.
== END | disposition home or self-care (01) ==
LOC: CVS 06:54
PROVIDERS: PCP Internal Medicine; Referring Provider Internal Medicine; Visit Provider Internal Medicine
DX: R07.9 Chest pain, unspecified (principal); I65.23 Occlusion and stenosis of bilateral carotid arteries
CPT/HCPCS: 78452; 93017; 93880; A9500; A4216

== ENCOUNTER → 2024-02-25 | Outpatient (CLI) | payer MEDICARE, BC, SELFPAY ==
--- NOTE | 2024-02-25 09:57 | US_ITS ---
STUDY: ABDOMINAL ULTRASOUND - RIGHT UPPER QUADRANT; ELASTOGRAPHY REASON FOR VISIT: Male, 64 years old. Fatty infiltration of liver. TECHNIQUE: Ultrasound evaluation of the right upper quadrant was performed with real-time and static tee-scale imaging. Point quantification shear wave elastography was performed ([employer]). TECHNICAL QUALITY: Adequate. COMPARISON: Comparison is made with prior sonogram dated February 17, 2023. FINDINGS: Liver: The liver measures 17 cm. Lobular contour suggestive of possible cirrhosis. There is recanalization of the umbilical vein. There is increased echogenicity consistent with fatty infiltration. The bile ducts are within normal limits. There is hepatic color flow. The direction of portal flow is hepatopetal. There is no demonstrated mass lesion. Median liver stiffness measured 11 kPa. Gallbladder: Normal distended gallbladder. The gallbladder wall measures 2.0 mm. There is a negative sonographic Scott''s sign. There is no pericholecystic fluid. There are no gallstones. Common Bile Duct (C.B.D.): The common bile duct measures 4.0 mm. Pancreas: The pancreas is not visualized due to overlying bowel gas. Right Kidney: Normal size of the right kidney. The right kidney measures 14.2 cm x 5.6 cm x 5.2 cm. Normal renal cortex. The right cortex measures 1.8 cm. There is no demonstrated renal mass or cyst. There is no right hydronephrosis. US/ABD Limited w/ Elastography IMPRESSION: 1. Liver stiffness measures 11 kPa compatible with F2-F3 (Mild to moderate liver fibrosis) Metavir score. Electronically Signed: Johnathon Fulton MD at 13:11 EST ,
== END | disposition home or self-care (01) ==
LOC: US 09:55
PROVIDERS: PCP Internal Medicine; Referring Provider Internal Medicine; Visit Provider Internal Medicine
DX: K76.0 Fatty (change of) liver, not elsewhere classified (principal)
CPT/HCPCS: 76705; 76981

== ENCOUNTER → 2024-03-31 | Outpatient (CLI) | payer MEDICARE, BC, SELFPAY | END | disposition home or self-care (01) | LOC: PSN 08:26 | PROVIDERS: PCP Internal Medicine; Referring Provider Internal Medicine; Visit Provider Internal Medicine | DX: I49.3 Ventricular premature depolarization (principal) | CPT/HCPCS: 93225; 93226 ==

== ENCOUNTER 2024-05-30 16:00 | Outpatient (RCR) | payer MEDICARE, BC, SELFPAY ==
--- NOTE | 2024-04-21 10:03 | HP.PTEVAL_ITS ---
Patient's Visit Information Visit Information Visit Information: GILSON BHATIA is a 64 year old M referred to Physical Therapy by Dr. Marybel Garcias DO with a diagnosis of B knee OA. Date of Evaluation: 04/21/24 Physical Therapist: Manish Bright, PT, ATC Visit Plan Frequency: 2x /Week Duration: 4-6 Weeks Plan: B LE strengthening (gym routine), balance and proprio, core strengthening, B knee stretching, bike, and HEP Subjective Subjective: Pt reports he had his L knee replaced 2 years ago, and then his R knee replaced 1 year ago. Pt reports he had PT over that time span and did really well. However, he has noticed lately that his knees are feeling tighter and he is having a difficult time performing normal daily tasks, such as putting on his shoes as he is unable to cross his legs. Pt reports he has occasional pain in his R knee, but overall is usually pain free. 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 Pt denies tingling or numbness in LE's. Pt reports he has stairs at home which he has no difficulty with negotiating. Pt denies sleep difficulty at this time secondary to knee pain. Pt reports his goal for PT is to increase his strength and mobility in B knees. Pain B knee pain: Pain Intensity (Out of 10): 1 Pain Intensity Range: 1 Objective Objective: Neuro: B LE sensation is WNL to light touch ROM: R knee 0-104 ; L knee 0-122 degrees MMT: R knee flex= 37, ext= 47 #F; L knee flex= 47, ext= 65 #F TU seconds sit to stands: 15 reps in 30 seconds SLS: L LE for 7 sec, R LE 4 seconds Balance/Special Test Scores Lower Extremity Functional Score: 72 Goals Goal 1:: Increase B knee strength x 5-10 #F to aid with daily chores Goal Time Frame: 4-6 Weeks Goal 2:: Increase R knee flexion x 10 degrees to aid with climbing into his tractor Goal Time Frame: 4-6 Weeks Goal 3:: Pt will perform SLS in B LE's for 10 sec to aid with preventing future falls Goal Time Frame: 4-6 Weeks Goal 4:: I with HEP Goal Time Frame: 4-6 Weeks Rehabilitation Potential Physical Therapy Diagnosis: Pt has B LE weakness, limited ROM, 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 For Medicare and Medicare HMO plans, please review the plan of care and approve it. It will need to be FAXED BACK to us at [phone] for Medicare purposes. For Medicare only, by signing this I certify the plan of care. Please let me know if there are questions or concerns regarding this plan of care. Physician Signature: Date:
--- NOTE | 2024-05-30 16:48 | HP.PTDCSUM ---
Discharge Summary D/C summary: It has been my pleasure to treat GILSON BHATIA referred by Dr. Marybel Garcias DO, with the diagnosis of B knee OA for a total of 11 visit(s). Discharge Date: Please see the following information for a summary of their discharge status. Subjective Subjective: I am ready to be done with PT Pain B knee pain: Pain Intensity (Out of 10): 0 Overall Improvement % Improvement: 90 Objective Objective/Function: Pain 0/10 ROM: L knee 0- 130; R knee 0-125 degrees MMT: L knee flex= 38, ext= 54; R knee flex=53 , ext= 63 #F Goals Goal 1:: Increase B knee strength x 5-10 #F to aid with daily chores Goal Progress: Goal Met Goal 2:: Increase R knee flexion x 10 degrees to aid with climbing into his tractor Goal Progress: Goal Met Goal 3:: Pt will perform SLS in B LE's for 10 sec to aid with preventing future falls Goal Progress: Goal Met Goal 4:: I with HEP Goal Progress: Goal Met Plan Plan: Discharge to gym routine D/C Information d/c sentence: If there are questions or concerns regarding this patient's physical therapy, please feel free to call me at [phone]. Thank you for the referral of this patient. Sincerely, Manish Bright, PT, ATC Balance/Gait/Functional tests Balance/Special Test Scores Lower Extremity Functional Score: 80 Improvement % Improvement: 90
== END 2024-05-30 19:00 | disposition home or self-care (01) ==
LOC: PT 16:00
PROVIDERS: PCP Internal Medicine; Referring Provider Internal Medicine; Visit Provider Internal Medicine
DX: M17.0 Bilateral primary osteoarthritis of knee (principal)
CPT/HCPCS: 97110; 97161; 97530

== ENCOUNTER → 2024-07-06 | Outpatient (CLI) | payer MEDICARE, BC, SELFPAY ==
--- NOTE | 2024-07-06 10:58 | ECHOL_ITS ---
Reason For Study Reason For Study: Murmur-new Procedure This was a limited 2D transthoracic echocardiogram. Exam performed in department. Left Ventricle Normal LV size. Mild concentric left ventricular hypertrophy. Left ventricular systolic function is normal. The left ventricular ejection fraction is 65 %. No regional wall motion abnormalities noted. Right Ventricle Normal RV size. Normal systolic function. Atria The left atrium is mildly enlarged. The right atrium is mildly enlarged. Mitral Valve There is mild mitral annular calcification. Tricuspid Valve Normal tricuspid valve. Mild (1+) tricuspid valve insufficiency. Pulmonary artery systolic pressure is 40 mmHg. Aortic Valve Normal aortic valve. Trisinus/trileaflet aortic valve. Pulmonic Valve Normal pulmonic valve. Great Vessels Normal aortic root. The pulmonary artery is normal size. Inferior vena cava collapse with respiration. Pericardium/Pleural No pericardial effusion. MMode/2D Measurements & Calculations LVIDd: 5.0 cm IVSd: 1.4 cm LA dimension: 5.2 cm LVIDs: 2.8 cm LVPWd: 1.2 cm FS: 44.3 % LAV(MOD-bp): 92.6 ml LA A4 area: 26.7 cm2 RA A4 area: 25.1 cm2 LAV(MOD-bp) Indexed: 37.6 ml/m2 LAV(MOD-sp2): 91.8 ml LAV(MOD-sp4): 84.9 ml Time Measurements MV dec time: 0.20 sec Doppler Measurements & Calculations MV E max suyapa: 86.2 cm/sec MV V2 max: 101.9 cm/sec MV P1/2t max suyapa: 103.9 cm/sec MV A max suyapa: 76.8 cm/sec MV max P.2 mmHg MV P1/2t: 72.4 msec MV E/A: 1.1 MV V2 mean: 61.8 cm/sec MV dec slope: 420.1 cm/sec2 MV mean P.8 mmHg MVA(P1/2t): 3.0 cm2 MV V2 VTI: 31.7 cm MR max suyapa: 520.2 cm/sec TR max suyapa: 301.7 cm/sec MR max P.3 mmHg TR max P.4 mmHg ECHO/Echo, Limited Study Interpretation Summary Normal LV size. Left ventricular systolic function is normal. The left ventricular ejection fraction is 65 %. Mild concentric left ventricular hypertrophy. Mild (1+) tricuspid valve insufficiency. Pulmonary artery systolic pressure is 40 mmHg. Ordering Physician: Jaylon Mitchell Referring Physician: Jaylon Mitchell Performed By: Sameer Lee RCS
== END | disposition home or self-care (01) ==
LOC: CVS 10:56
PROVIDERS: PCP Internal Medicine; Referring Provider Nurse Practitioner Family; Visit Provider Nurse Practitioner Family
DX: R01.1 Cardiac murmur, unspecified (principal); R53.83 Other fatigue; R55 Syncope and collapse; I25.10 Atherosclerotic heart disease of native coronary artery without angina pectoris
CPT/HCPCS: 93308

== ENCOUNTER → 2024-08-30 | Outpatient (CLI) | payer MEDICARE, BC, SELFPAY ==
--- NOTE | 2024-08-30 09:45 | MRI_ITS ---
PROCEDURE: MRI ABD WITH AND W/O CONTRAST, 08/30/2024 REASON FOR EXAM: MRI OF ABDOMEN WITHOUT THEN WITH CONTRAST TECHNIQUE: Multiplanar multisequence MRI abdomen was performed with and without IV contrast. IV contrast: 27 mL Clariscan COMPARISON: 02/25/2024 FINDINGS: Variable overall mild motion limitation. Some sequences are mild/moderately motion degraded. Note some abdominal viscera extend beyond the field of view as the exam was optimized for assessment of the liver. Note the exam is limited by the lack of a true late arterial phase of postcontrast imaging, with imaging performed in the early arterial phase and subsequently in the hepatic venous and more delayed phases, limiting sensitivity for arterial hyperenhancing hepatic lesions. T2 fat-sat was not performed. Liver: Cirrhosis and suspected steatosis. 5 mm subcapsular focus of subcapsular early arterial hyperenhancement without washout anterior segment Sang, possibly perfusional given location and absence of a T2 correlate, however technically LI-RADS 3. No correlate on diffusion. Spleen: Splenomegaly, 18.2 cm coronal. Gallbladder: Unremarkable. Pancreas: 6 mm T2 bright likely cystic lesion. No ductal dilatation.. Adrenals: Unremarkable. Kidneys: Grossly unremarkable. Bowel: Not well evaluated by MRI; no gross bowel dilatation. Diverticulosis.. Lymph nodes: Portacaval node, 19 mm short axis, previously 16 mm. Vasculature: Perisplenic varices. Splenorenal shunt. Recanalized umbilical vein. Paraesophageal varices.. Peritoneum: Unremarkable. Bones: Multilevel spondylosis.. MRI/MRI Abd WITH and W/O Contrast IMPRESSION: 1. Cirrhosis with sequela of portal hypertension. No visualized abdominal asci kristopher. 2. Subtle punctate 5 mm lesion in segment IV could be perfusional however techn ically meets criteria for LI-RADS 3. No other focal hepatic lesion identified. Attention on follow-up recommended. 3. Enlarged portacaval lymph node, nonspecific and potentially reactive in the absence of known malignancy. Attention on follow-up imaging recommended. 4. 6 mm pancreatic probably cystic lesion such as an IPMN. No suspicious ducta l dilatation. Attention on follow-up imaging recommended, which should ideally include MRCP. 5. Additional description as above. Reading Location: [id number]
== END | disposition home or self-care (01) ==
LOC: MRI 09:38
PROVIDERS: PCP Internal Medicine; Referring Provider Internal Medicine; Visit Provider Internal Medicine
DX: K74.60 Unspecified cirrhosis of liver (principal)
CPT/HCPCS: 74183; A9575; A4216

== ENCOUNTER → 2024-09-07 | Outpatient (CLI) | payer MEDICARE, BC, SELFPAY ==
--- NOTE | 2024-09-07 17:13 | MRI_ITS ---
PROCEDURE: MRI ABDOMEN WITHOUT CONTRAST, 09/07/2024 REASON FOR EXAM: MRI ABDOMEN W/O CONTRAST - ABNORMAL MRI, PANCREATIC CYSTIC LESIO TECHNIQUE: Multiplanar multisequence MRI abdomen was performed without IV contrast. IV contrast: None. COMPARISON: 08/30/2024. FINDINGS: Variable overall mild/moderate motion limitation. Note that evaluation of the abdominopelvic viscera, vasculature, and remaining soft tissues is limited in the absence of IV contrast and routine MRI abdomen sequences such as diffusion. Note also that some abdominal viscera are excluded from the field of view as the exam was optimized for evaluation of the pancreas/pancreatic ducts. Liver: Cirrhosis. Focal lesion better depicted previously. Gallbladder: Grossly unremarkable. Biliary tree: Unremarkable. Pancreas no suspicious ductal dilatation. Previous 6 mm lesion of concern is not visible, possibly due to punctate size and technical limitations. An additional previously nonvisualized T2 bright 5 mm lesion in the pancreatic head was not visible previously. Other: Splenomegaly, periportal lymphadenopathy, vascular collaterals, and additional findings as described previously. MRI/MRCP Abdomen without Contrast IMPRESSION: 1. Slightly motion limited noncontrast exam. 2. Nonvisualization of previous punctate 6 mm pancreatic cystic focus probably due to the combination of punctate size and motion artifact. A 5 mm lesion is seen within the pancreatic head, not visible previo usly. Differential considerations and recommendation for follow-up as previously described are unchanged. Per ACR re commendations, these warrant follow-up multiphase pancreatic protocol MRI abdomen with and without contrast and with MRCP in 2 ye ars. No suspicious ductal dilatation. 3. Additional description as above and as recently detailed on 08/30/2024. Reading Location: [id number]
== END | disposition home or self-care (01) ==
LOC: MRI 16:59
PROVIDERS: PCP Internal Medicine; Referring Provider Internal Medicine; Visit Provider Internal Medicine
DX: R93.5 Abnormal findings on diagnostic imaging of other abdominal regions, including retroperitoneum (principal)
CPT/HCPCS: 74181

== ENCOUNTER → 2024-12-11 | Outpatient (CLI) | payer MEDICARE, BC, SELFPAY ==
[2024-12-11 16:14] LABS: Hematocrit 38.5 % (40-54); Hemoglobin 12.4 g/dL (13.0-16.5); Immature Granulocytes Count 0.010 X10^3/uL (0.0-0.0); Mean Corp Hgb Conc 32.2 g/dL (32-36); Mean Corpuscular Volume 86.5 fL (80-94); Mean Platelet Vol. 10.0 fl (6.2-12.0); NRBC Flagged by Analyzer 0 % (0-5); Platelet Count 101 K/mm3 (150-450); RBC Distribution Width CV 16.4 % (11.6-14.6); RBC Distribution Width SD 52.0 fl (35.1-43.9); Red Blood Count 4.45 M/mm3 (4.6-6.2); White Blood Count 4.0 K/mm3 (4.4-11.0)
[2024-12-11 16:40] LABS: Creatinine, Urine (random) 90.80 mg/dL (39.00-259.00); Microalbumin,Random Urine < 12.0 mg/L (<20 mg/L)
[2024-12-11 16:59] LABS: AST(SGOT) 39 U/L (<=37); Alanine Aminotransfer ALT/SGPT 29 U/L (<=46); Albumin, Serum 4.0 g/dL (3.4-4.8); Alkaline Phosphatase 147 U/L (40-129); Anion Gap 11 (5-15); BUN 19 mg/dL (4-19); BUN/Creat Ratio 21.9 RATIO (10-20); Calcium,Total 9.4 mg/dL (7.6-11.0); Carbon Dioxide 26.0 mmol/L (21.0-32.0); Chloride 102 mmol/L (98-108); Cholesterol 117 mg/dL (<=200); Globulin 3.0 g/dL (2.2-4.2); Glucose 127 mg/dL (70-99); Low Density Lipoprotein Calc. 59 mg/dL; Potassium 3.7 mmol/L (3.3-5.1); Triglycerides 145 mg/dL; Very Low Density Lipoprotein 29 mg/dL (5-40); cholesterol:hdl ratio screen 3.62
== END | disposition home or self-care (01) ==
LOC: LABSPEC 15:20
PROVIDERS: PCP Internal Medicine; Referring Provider Internal Medicine; Visit Provider Internal Medicine
DX: I10 Essential (primary) hypertension (principal); E11.59 Type 2 diabetes mellitus with other circulatory complications; E78.2 Mixed hyperlipidemia
CPT/HCPCS: 80053; 80061; 82043; 82570; 84443; 85025

== ENCOUNTER → 2025-02-01 | Outpatient (CLI) | payer MEDICARE, BC, SELFPAY ==
[2025-02-01 15:52] LABS: Hematocrit 36.6 % (40-54); Hemoglobin 11.5 g/dL (13.0-16.5); Immature Granulocytes Count 0.010 X10^3/uL (0.0-0.0); Mean Corp Hgb Conc 31.4 g/dL (32-36); Mean Corpuscular Volume 85.1 fL (80-94); Mean Platelet Vol. 9.1 fl (6.2-12.0); NRBC Flagged by Analyzer 0 % (0-5); Platelet Count 113 K/mm3 (150-450); RBC Distribution Width CV 16.7 % (11.6-14.6); RBC Distribution Width SD 52.3 fl (35.1-43.9); Red Blood Count 4.30 M/mm3 (4.6-6.2); White Blood Count 3.6 K/mm3 (4.4-11.0)
[2025-02-01 16:06] LABS: AST(SGOT) 36 U/L (<=37); Alanine Aminotransfer ALT/SGPT 26 U/L (<=46); Albumin, Serum 4.0 g/dL (3.4-4.8); Alkaline Phosphatase 137 U/L (40-129); Anion Gap 11 (5-15); BUN 11 mg/dL (4-19); BUN/Creat Ratio 13.5 RATIO (10-20); Calcium,Total 9.1 mg/dL (7.6-11.0); Carbon Dioxide 25.7 mmol/L (21.0-32.0); Chloride 104 mmol/L (98-108); Globulin 3.0 g/dL (2.2-4.2); Glucose 121 mg/dL (70-99); Potassium 3.4 mmol/L (3.3-5.1)
== END | disposition home or self-care (01) ==
LOC: CIMLAB 13:01
PROVIDERS: PCP Internal Medicine; Referring Provider Internal Medicine; Visit Provider Internal Medicine
DX: E11.59 Type 2 diabetes mellitus with other circulatory complications (principal)
CPT/HCPCS: 36415; 80053; 83036; 85025